=== PATIENT | male | born 1925 | race Caucasian/White ===

== ENCOUNTER → 2016-11-23 | Outpatient (CLI) | payer MEDICARE, OTHER ==
--- NOTE | 2016-11-23 18:05 | US ---
EXAMINATION TYPE: US kidneys/renal and bladder DATE OF EXAM: 11/23/2016 4:38 PM COMPARISON: 05/19/2015. CLINICAL HISTORY: 89-year-old male with urinary Retention R33.9. TECHNIQUE: Multiple sonographic images of the kidneys and bladder were obtained. FINDINGS: Right Kidney: 9.5 x 5.1 x 6.0cm without hydronephrosis. There is a 2.1 cm cyst at the lower pole. Left Kidney: 10.2 x 5.1 x 4.9cm without hydronephrosis. There is a 1.4 cm hypoechoic lesion within th e midpole, suspected cyst. There is a 5.7 cm solid lesion along the left inferior bladder as seen previously on 05/19/2015. Neith er ureteral jet is seen during the course of the exam. IMPRESSION: 1. No hydronephrosis. 2. A 2.1 cm cyst on the right and suspected 1.4 cm cyst at the left midpole as seen on 2014. Low-leve l echoes could be artifactual or could represent debris. 3. Redemonstrated 5.7 cm solid lesion left inferior bladder wall. Clinical correlation recommended as to etiology as this was also seen in 2015. Neoplasm not excluded.
== END | disposition home or self-care (01) ==
LOC: RADUSWWP 16:21
PROVIDERS: ATTEND Urology
DX: N28.1 Cyst of kidney, acquired (principal); N32.9 Bladder disorder, unspecified; R33.9 Retention of urine, unspecified
CPT/HCPCS: 76770

== ENCOUNTER → 2016-11-30 | Outpatient (CLI) | payer MEDICARE, OTHER ==
--- NOTE | 2016-11-30 10:19 | US ---
EXAMINATION TYPE: US venous doppler duplex LE DATE OF EXAM: 11/30/2016 9:42 AM COMPARISON: Bilateral lower extremity venous ultrasound February 10, 2015 CLINICAL HISTORY: LLext, Thrombolitis, I80.9. 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 No ult rasound evidence for acute DVT. Moderate-sized curvilinear fluid collection at the medial popliteal l evel in the left lower extremity is noted. Findings consistent with popliteal cyst. IMPRESSION: No ultrasound evidence for acute DVT in the left lower extremity.
== END | disposition home or self-care (01) ==
LOC: RADUSWWP 09:02
PROVIDERS: ATTEND Orthopaedic Surgery Orthopaedic Surgery of the Spine
DX: I82.402 Acute embolism and thrombosis of unspecified deep veins of left lower extremity (principal); I80.9 Phlebitis and thrombophlebitis of unspecified site

== ENCOUNTER 2016-12-02 01:23 | Inpatient (IN) | payer MEDICARE, OTHER ==
[2016-12-02 02:43] LABS: Basophils % (A) 0 %; CH 33.5; CHCM 34.5; Eosinophils % (A) 0 %; HCT 37.7 % (39.0-53.0); HDW 2.95; HGB 13.2 gm/dL (13.0-17.5); Luc # (Auto) 0.16; Luc % (Auto) 2; Lymphocytes # (A) 0.8 k/uL (1.0-4.8); Lymphocytes % (A) 9 %; MCH 34.1 pg (25.0-35.0); MCV 97.5 fL (80.0-100.0); Mean Platelet Volume 7.3; Monocytes # (A) 0.6 k/uL (0-1.0); Monocytes % (A) 6 %; Neutrophils # (A) 7.8 k/uL (1.3-7.7); Neutrophils % (A) 83 %; RBC 3.87 m/uL (4.30-5.90); RDW 14.6 % (11.5-15.5); WBC 9.4 k/uL (3.8-10.6); WBC (Perox) 10.19
[2016-12-02 02:52] LABS: ALT 29 U/L (21-72); AST 19 U/L (17-59); Alkaline Phosphatase 89 U/L (38-126); Anion Gap 9 mmol/L; Blood Urea Nitrogen 15 mg/dL (9-20); Calcium 8.3 mg/dL (8.4-10.2); Carbon Dioxide 26 mmol/L (22-30); Chloride 103 mmol/L (98-107); Glucose 111 mg/dL (74-99); Magnesium 1.9 mg/dL (1.6-2.3); Non-African American GFR(MDRD) >60 (>60 ml/min/1.73 sqM); Potassium 3.6 mmol/L (3.5-5.1); Sodium 138 mmol/L (137-145); Total Bilirubin 2.4 mg/dL (0.2-1.3)
--- NOTE | 2016-12-02 03:15 | CT ---
EXAM: CT Head Without Intravenous Contrast. CLINICAL HISTORY: Reason: trauma TECHNIQUE: Axial computed tomography images of the head/brain without intravenous contrast. CTDI is 58.00 mGy and DLP is 1058.00 mGy-cm COMPARISON: No relevant prior studies available. FINDINGS: Brain: Generalized atrophy. Posterior left temporal lobe encephalomalacia with mild ex vacuo dilatation of the left lateral ventricle temporal horn. No hemorrhage. No edema. Intracranial atherosclerosis is present. Ventricles: Seen above Bones: No acute fracture. Sinuses: Bilateral paranasal sinus disease involving the maxillary sinuses and right sphenoid sinus, all with mild wall thickening and could include small amounts of fluid, suggesting it may be of mixed chronicity. There has been previous paranasal sinus surgery. Mastoid air cells: Unremarkable as visualized. No mastoid effusion. Orbits: Near complete hyperdensity filling the left globe, that maintains its shape, without evidence of periorbital or intraorbital fat stranding suggesting hemorrhage that may be remote rather than acute. IMPRESSION: 1. No definite acute intracranial sequela from trauma. 2. Posterior left temporal lobe encephalomalacia. 3. Bilateral paranasal sinus disease. 4. High density material suggesting hemorrhage within the left globe, possibly chronic rather than acute. Correlate clinically. EXAM: CT Cervical Spine Without Intravenous Contrast. CLINICAL HISTORY: Reason: trauma TECHNIQUE: Axial computed tomography images of the cervical spine without intravenous contrast. CTDI is 37.00 mGy and DLP is 470.50 mGy-cm COMPARISON: No relevant prior studies available. FINDINGS: Vertebrae: Minor grade 1 anterolisthesis at C4 in relation to C3 and C5, presumably on a degenerative basis. No acute fracture allowing for multilevel degenerative changes, and osteopenia. Discs/spinal canal/neural foramina: The bones are osteopenic with multilevel degenerative changes present. Soft tissues: The prevertebral soft tissues are within normal limits. Bilateral carotid vascular calcification is seen. Lung apices: Unremarkable as visualized. IMPRESSION: 1. No definite acute osseous abnormality is seen. 2. Clinical clearance of the cervical spine is still recommended. 3. Multilevel spondylosis with minor anterolisthesis centered at the C4 level.
--- NOTE | 2016-12-02 03:18 | XR ---
EXAM: XR Left Forearm, 2 Views. CLINICAL HISTORY: Reason: Pain TECHNIQUE: Frontal and lateral views of the left forearm. COMPARISON: No relevant prior studies available. FINDINGS: Bones: The bones are diffusely osteopenic which limits sensitivity for detection of an acute fracture, allowing for which no acute fracture is identified. Joints: Degenerative changes are present including about the elbow, wrist and carpus. No dislocation. Soft tissues: No radiopaque foreign body seen. IMPRESSION: No acute fracture is seen at this time, as above. Short-term follow-up could be considered within 5-7 days if concern or symptoms persist.
[2016-12-02 03:20] LABS: Creatine Kinase MB 1.1 ng/mL (0.0-2.4)
--- NOTE | 2016-12-02 03:21 | XR ---
EXAM: XR Chest, 1 View. CLINICAL HISTORY: Reason: fall TECHNIQUE: Frontal view of the chest. COMPARISON: No relevant prior studies available. FINDINGS: Lungs: Unremarkable. No consolidation. Pleural spaces: Unremarkable. No pneumothorax. Heart: Mild cardiomegaly. Mediastinum: Mild aortic ectasia and calcification. Bones: Osteopenia and degenerative changes without acute displaced fracture seen. Tubes and lines: There is artifact present overlying the shoulders and neck, perhaps from external clothing or support structures. EKG leads overlie the chest. IMPRESSION: No definite acute intrathoracic sequela from trauma seen, as above.
[2016-12-02 03:43] LABS: Troponin I 0.212 ng/mL (0.000-0.034)
[2016-12-02 03:51] LABS: Appearance,Urine Clear (Clear); Bacteria,Urine Rare /hpf; Bilirubin,Urine Negative (Negative); Glucose,Urine (UA) Negative (Negative); Ketones,Urine Negative (Negative); Leukocyte Esterase,Urine Large (Negative); Mucus,Urine Rare /hpf; Nitrite,Urine Negative (Negative); Particle Count 4752; Protein,Urine 1+ (Negative); RBC,Urine 83 /hpf (0-5); Specific Gravity,Urine 1.018 (1.001-1.035); UA Billing (MACRO vs. MICRO) MICRO; WBC,Urine 115 /hpf (0-5)
[2016-12-02] MEDS ORDERED: LEVOFLOXACIN 750MG-D5W PMX 750 MG in DEXTROSE/WATER 1 150ML.BAG IVPB STA (04:41)
--- NOTE | 2016-12-02 05:54 | ED ---
Fall HPI - General Chief Complaint: Fall Stated Complaint: fall Time Seen by Provider: 12/02/16 01:29 Source: patient Mode of arrival: EMS - History of Present Illness Initial Comments: This patient is an 89-year-old man brought in to be evaluated after he had a fall at home. The patient had fallen earlier in the day and then was too weak to get up. The patient states that he was eventually able to dial his son-in- law's phone number who came and found him lying on the floor, and then phone EMS to bring him here. The patient was having some pains to the back of the head near the occiput, also to his left forearm where there is a skin tear. The patient is denying chest pain or dyspnea. He is denying neurologic symptoms of weakness or numbness, no change in vision, speech or swallowing. The patient is having some weakness but is the bilateral lower extremities. Patient and son note that he has been getting progressively more weak over the past few days, and today he was not able to stand after the fall. 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: no Place Fall Occurred: home Loss of Consciousness: none Prolonged Down Time?: yes Symptoms Prior to Fall: none Location: head, chest Severity: moderate Context: tripped/slipped Associated Symptoms: unable to walk - Related Data Home Medications Medication Instructions Recorded Confirmed Allopurinol [Zyloprim] 300 mg PO DAILY 10/06/14 09/14/16 Budesonide-Formot 160-4.5 Mcg 2 puff INHALATION RT-BID 10/06/14 09/14/16 [Symbicort 160-4.5 Mcg Inhaler] Cholecalciferol [Vitamin D3] 2,000 unit PO DAILY@1200 10/06/14 09/14/16 Finasteride [Proscar] 5 mg PO DAILY 10/06/14 09/14/16 Potassium Chloride [Klor-Con 20] 20 meq PO AC-BID 10/06/14 09/14/16 Retinavites 1 tab PO BID 10/06/14 09/14/16 Silodosin [Rapaflo] 8 mg PO HS 10/06/14 09/14/16 Travoprost [Travatan Z 0.004%] 1 drop RIGHT EYE DAILY 10/06/14 09/14/16 prednisoLONE ACETATE 1% OPHTH 1 drops LEFT EYE DAILY 10/06/14 09/14/16 [Pred Forte 1%] Atropine Sulfate [Atropine Sulfate 1 spray LEFT EYE BID 09/14/16 09/14/16 1%] Dorzolamide 2% [Trusopt 2%] 1 drops RIGHT EYE BID 09/14/16 09/14/16 Furosemide [Lasix] 40 mg PO DAILY 09/14/16 09/14/16 Moxifloxacin HCl [Avelox] 400 mg PO DAILY 09/14/16 09/14/16 Previous Rx's Medication Instructions Recorded Ofloxacin 0.3% Ophth Soln [Ocuflox 1 drops RIGHT EYE Q2HR #1 bottle 09/05/16 Ophth Soln] Allergies Allergy/AdvReac Type Severity Reaction Status Date / Time No Known Allergies Allergy Verified 12/02/16 01:37 Review of Systems ROS Statement: Those systems with pertinent positive or pertinent negative responses have been documented in the HPI. ROS Other: All systems not noted in ROS Statement are negative. Constitutional: Reports: fever, weakness Eyes: Denies: eye pain, vision change ENT: Denies: hearing loss Respiratory: Denies: cough, dyspnea Cardiovascular: Reports: dyspnea on exertion. Denies: chest pain, palpitations , orthopnea, syncope Gastrointestinal: Denies: abdominal pain, vomiting, diarrhea Genitourinary: Reports: other (Indwelling catheter due to prostate). Denies: dysuria Musculoskeletal: Denies: back pain Skin: Denies: rash Neurological: Reports: weakness (Generalized). Denies: headache, numbness, paresthesias Past Medical History Past Medical History: COPD, Hypertension Additional Past Medical History / Comment(s): gout History of Any Multi-Drug Resistant Organisms: MRSA Date of last positivie culture/infection: 10/16/2009 MDRO Source:: unknown Past Surgical History: No Surgical Hx Reported Additional Past Surgical History / Comment(s): ruptured testicle at age of 11, cataract surgery Past Anesthesia/Blood Transfusion Reactions: No Reported Reaction Past Psychological History: No Psychological Hx Reported Smoking Status: Former smoker Past Alcohol Use History: Daily Past Drug Use History: None Reported - Past Family History Father Family Medical History: Myocardial Infarction ([place]) Additional Family Medical History / Comment(s): pt. states his father in his 50's from a heart attack General Exam General appearance: alert, in no apparent distress, obese Head exam: Present: normocephalic, other (There is contusions the right posterior scalp) Eye exam: Present: normal appearance. Absent: scleral icterus, conjunctival injection ENT exam: Present: mucous membranes dry Neck exam: Present: normal inspection. Absent: tenderness, meningismus, lymphadenopathy Respiratory exam: Present: normal lung sounds bilaterally. Absent: respiratory distress, wheezes, rales, rhonchi, stridor, chest wall tenderness, decreased breath sounds Cardiovascular Exam: Present: normal rhythm, irregular rhythm, systolic murmur ( Grade 2/6). Absent: diastolic murmur, rubs, gallop GI/Abdominal exam: Present: soft. Absent: distended, tenderness, guarding, rebound, mass Extremities exam: Present: normal capillary refill. Absent: pedal edema, calf tenderness Back exam: Absent: CVA tenderness (R), CVA tenderness (L), vertebral tenderness Neurological exam: Present: alert, oriented X3, CN II-XII intact. Absent: motor sensory deficit Skin exam: Present: warm, dry, intact, normal color. Absent: rash Course Vital Signs 12/02/16 12/02/16 01:32 05:52 Temperature 100.5 F H 97.9 F Pulse Rate 70 96 Respiratory 18 18 Rate Blood Pressure 157/80 113/78 O2 Sat by Pulse 96 95 Oximetry Medical Decision Making - Medical Decision Making Patient is an 89-year-old man who had a fall tonight with weakness and inability to get up and walk after. He also has fever and some tachycardia. The workup reveals that there is urinary tract infection, however the patient does have indwelling catheter and this may be colonized. A culture will be pending. The patient's EKG may show atrial fibrillation, and he is given a dose of Lovenox here in the emergency department. As his troponin is minimally elevated , patient will have cardiology consultation and also monitoring and serial enzymes. Patient may require longer term anticoagulation but this will require further discussions as patient does appear to be fall risk. - Lab Data Result diagrams: 12/02/16 02:20 12/02/16 02:20 Lab Results 12/02/16 12/02/16 12/02/16 Range/Units 02:20 02:20 02:20 WBC 9.4 (3.8-10.6) k/uL RBC 3.87 L (4.30-5.90) m/uL Hgb 13.2 (13.0-17.5) gm/dL Hct 37.7 L (39.0-53.0) % MCV 97.5 (80.0-100.0) fL MCH 34.1 (25.0-35.0) pg MCHC 35.0 (31.0-37.0) g/dL RDW 14.6 (11.5-15.5) % Plt Count 184 (150-450) k/uL Neutrophils % 83 % Lymphocytes % 9 % Monocytes % 6 % Eosinophils % 0 % Basophils % 0 % Neutrophils # 7.8 H (1.3-7.7) k/uL Lymphocytes # 0.8 L (1.0-4.8) k/uL Monocytes # 0.6 (0-1.0) k/uL Eosinophils # 0.0 (0-0.7) k/uL Basophils # 0.0 (0-0.2) k/uL Sodium 138 (137-145) mmol/L Potassium 3.6 (3.5-5.1) mmol/L Chloride 103 (98-107) mmol/L Carbon Dioxide 26 (22-30) mmol/L Anion Gap 9 mmol/L BUN 15 (9-20) mg/dL Creatinine 0.80 (0.66-1.25) mg/dL Est GFR (MDRD) Af Amer >60 (>60 ml/min/1.73 sqM) Est GFR (MDRD) Non-Af >60 (>60 ml/min/1.73 sqM) Glucose 111 H (74-99) mg/dL Plasma Lactic Acid Cesar (0.7-2.0) mmol/L Calcium 8.3 L (8.4-10.2) mg/dL Magnesium 1.9 (1.6-2.3) mg/dL Total Bilirubin 2.4 H (0.2-1.3) mg/dL AST 19 (17-59) U/L ALT 29 (21-72) U/L Alkaline Phosphatase 89 (38-126) U/L Total Creatine Kinase 36 L (55-170) U/L CK-MB (CK-2) 1.1 (0.0-2.4) ng/mL CK-MB (CK-2) Rel Index 3.1 Troponin I 0.212 H* (0.000-0.034) ng/mL Total Protein 6.0 L (6.3-8.2) g/dL Albumin 3.0 L (3.5-5.0) g/dL Urine Color Urine Appearance (Clear) Urine pH (5.0-8.0) Ur Specific [place] (1.001-1.035) Urine Protein (Negative) Urine Glucose (UA) (Negative) Urine Ketones (Negative) Urine Blood (Negative) Urine Nitrate (Negative) Urine Bilirubin (Negative) Urine Urobilinogen (<2.0) mg/dL Ur Leukocyte Esterase (Negative) Urine RBC (0-5) /hpf Urine WBC (0-5) /hpf Urine Bacteria (None) /hpf Hyaline Casts (0-2) /lpf Urine Mucus (None) /hpf Influenza Type A RNA (Not Detectd) Influenza Type B (PCR) (Not Detectd) 12/02/16 12/02/16 12/02/16 Range/Units 02:20 02:20 03:00 WBC (3.8-10.6) k/uL RBC (4.30-5.90) m/uL Hgb (13.0-17.5) gm/dL Hct (39.0-53.0) % MCV (80.0-100.0) fL MCH (25.0-35.0) pg MCHC (31.0-37.0) g/dL RDW (11.5-15.5) % Plt Count (150-450) k/uL Neutrophils % % Lymphocytes % % Monocytes % % Eosinophils % % Basophils % % Neutrophils # (1.3-7.7) k/uL Lymphocytes # (1.0-4.8) k/uL Monocytes # (0-1.0) k/uL Eosinophils # (0-0.7) k/uL Basophils # (0-0.2) k/uL Sodium (137-145) mmol/L Potassium (3.5-5.1) mmol/L Chloride (98-107) mmol/L Carbon Dioxide (22-30) mmol/L Anion Gap mmol/L BUN (9-20) mg/dL Creatinine (0.66-1.25) mg/dL Est GFR (MDRD) Af Amer (>60 ml/min/1.73 sqM) Est GFR (MDRD) Non-Af (>60 ml/min/1.73 sqM) Glucose (74-99) mg/dL Plasma Lactic Acid Cesar 1.1 (0.7-2.0) mmol/L Calcium (8.4-10.2) mg/dL Magnesium (1.6-2.3) mg/dL Total Bilirubin (0.2-1.3) mg/dL AST (17-59) U/L ALT (21-72) U/L Alkaline Phosphatase (38-126) U/L Total Creatine Kinase (55-170) U/L CK-MB (CK-2) (0.0-2.4) ng/mL CK-MB (CK-2) Rel Index Troponin I (0.000-0.034) ng/mL Total Protein (6.3-8.2) g/dL Albumin (3.5-5.0) g/dL Urine Color Yellow Urine Appearance Clear (Clear) Urine pH 6.0 (5.0-8.0) Ur Specific [place] 1.018 (1.001-1.035) Urine Protein 1+ H (Negative) Urine Glucose (UA) Negative (Negative) Urine Ketones Negative (Negative) Urine Blood Moderate H (Negative) Urine Nitrate Negative (Negative) Urine Bilirubin Negative (Negative) Urine Urobilinogen 2.0 (<2.0) mg/dL Ur Leukocyte Esterase Large H (Negative) Urine RBC 83 H (0-5) /hpf Urine WBC 115 H (0-5) /hpf Urine Bacteria Rare H (None) /hpf Hyaline Casts 5 H (0-2) /lpf Urine Mucus Rare H (None) /hpf Influenza Type A RNA Not Detected (Not Detectd) Influenza Type B (PCR) Not Detected (Not Detectd) - EKG Data -: EKG Interpreted by Co EKG shows normal: axis ([place] deviation), intervals (Normal) When compared to previous EKG there are: other (The QRS morphology is similar to the previous EKG however the rhythm may now be atrial fibrillation.) Interpretation: LVH (With repolarization abnormality), other (The EKG shows an undetermined rhythm, but I suspect that his atrial fibrillation, the rate is approximately 114 bpm. There are occasional PVCs.) Critical Care Time Critical Care Time: Yes (40 minutes) Disposition Clinical Impression: Fall, Generalized weakness, Urinary tract infection, Elevated troponin I level Narrative: Possible atrial fibrillation. Disposition: ADMITTED IP TO THIS HOSP Condition: Poor
[2016-12-02] MEDS ORDERED: NITROGLYCERIN SL TABS 0.4 MG TAB SUBLINGUAL PRN (05:55)
[2016-12-02] MEDS ORDERED: ENOXAPARIN 100 MG/ML SYRINGE SQ STA (06:12)
[2016-12-02] MEDS ORDERED: POTASSIUM CHLORIDE ER 20 MEQ TAB.ER PO SCH (07:30)
[2016-12-02] MEDS ORDERED: SYMBICORT 160-4.5 MCG INHALER INHALATION SCH (08:00)
[2016-12-02 09:00] LABS: Creatine Kinase MB 1.7 ng/mL (0.0-2.4)
[2016-12-02] MEDS ORDERED: FUROSEMIDE 40 MG TAB PO SCH (09:00)
[2016-12-02 09:06] LABS: Troponin I 0.323 ng/mL (0.000-0.034)
[2016-12-02] MEDS: FINASTERIDE 5 MG TAB PO SCH (12:58)
[2016-12-02] MEDS: ALLOPURINOL 300 MG TAB PO SCH (12:58)
[2016-12-02] MEDS: LATANOPROST 0.005% OPHTH DROPS 2.5 ML BTL RIGHT EYE SCH (12:58)
[2016-12-02] MEDS: DORZOLAMIDE HCL 2% DROPS 10 ML BTL RIGHT EYE SCH ×2 (12:58→22:30)
[2016-12-02] MEDS: CHOLECALCIFEROL 1,000 UNIT TAB PO SCH (12:59)
[2016-12-02] MEDS: prednisoLONE ACETATE 1% OPHTH DROPS 1 ML BTL LEFT EYE SCH (12:59)
[2016-12-02] MEDS: VIT A,C & E-LUTEIN-MINERALS 1 EACH TAB PO SCH ×2 (12:59→22:30)
--- NOTE | 2016-12-02 15:00 | P.CRDCN ---
History of Present Illness Consult date: 12/02/16 Requesting physician: Jules Rock Reason for Consult (text): Abnormal troponins Chief complaint: Fall History of present illness: This is a pleasant 89-year-old gentleman who follows with Dr. Archer in the office. He has a known history of hypertension, but because of fairly recent hypotension his antihypertensive medications have been discontinued. 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 He presented to the hospital after experiencing a fall at home. According to the patient he became unsteady and fell to the ground. He did not have a syncopal episode according to the son-in-law and the patient. A cardiology consultation was requested because of abnormal troponins. X-ray of the forearm performed on admission did not reveal any acute fracture. Head and cervical spine CT did not reveal any acute abnormality. The pressure on arrival 157/80, temperature 100.5, 96% on room air. EKG on arrival shows a sinus tachycardia with PVCs and PACs. Laboratory data, hemoglobin 13.2, white blood cell count 9.4, sodium 138, potassium 3.6, BUN 15, creatinine 0.8. Positive UTI, troponins 0.2, 0.3. At the time of my examination, patient denies having any chest discomfort, breathing overall has been stable. He does have a productive cough which according to the son-in-law he has quite regularly. Past Medical History Past Medical History: Asthma, Cancer, COPD, Eye Disorder, Hypertension, Pneumonia, Prostate Disorder Additional Past Medical History / Comment(s): Macular degeneration/ glaucoma R eye, tracheobronchitis, BPH, indwelling catheter, skin cancer with removal, sinus problems, gout History of Any Multi-Drug Resistant Organisms: MRSA Date of last positivie culture/infection: 10/16/2009 MDRO Source:: Left forearm Past Surgical History: No Surgical Hx Reported, Hernia Repair, Prostate Surgery Additional Past Surgical History / Comment(s): ruptured testicle at age of 11, bilateral cataract removal, nasal polyps removed, TURP, inguinal hernia repair, L forearm bx. Past Anesthesia/Blood Transfusion Reactions: No Reported Reaction Past Psychological History: Depression Additional Psychological History / Comment(s): Pt states he sometimes has "alittle depression." Denies any thoughts of suicide, states when the time comes, he is ready to . Pt ambulates occasionally with the assist of a cane or walker. He has 4 steps to get into the home and then he stays on the 1st floor. He sleeps in his recliner. His matt and son-in-law live 1 mile away and are active in his care. They take him to his appts. They make sure he has meals. He has VNA. Smoking Status: Former smoker Past Alcohol Use History: Daily Additional Past Alcohol Use History / Comment(s): Pt states he started smoking in 1943 and quit in 1974. He states he used to drink heavily but now drinks 2- 3 beers a day. Past Drug Use History: None Reported - Past Family History Father Family Medical History: Myocardial Infarction ([place]) Additional Family Medical History / Comment(s): pt. states his father in his 50's from a heart attack Medications and Allergies Home Medications Medication Instructions Recorded Confirmed Type Allopurinol [Zyloprim] 300 mg PO DAILY 10/06/14 12/02/16 History Finasteride [Proscar] 5 mg PO DAILY 10/06/14 12/02/16 History Potassium Chloride [Klor-Con 20] 20 meq PO AC-BID 10/06/14 12/02/16 History Silodosin [Rapaflo] 8 mg PO HS 10/06/14 12/02/16 History Travoprost [Travatan Z 0.004%] 1 drop RIGHT EYE HS 10/06/14 12/02/16 History Dorzolamide 2% [Trusopt 2%] 1 drops RIGHT EYE HS 09/14/16 12/02/16 History Furosemide [Lasix] 40 mg PO DAILY 09/14/16 12/02/16 History Budesonide/Formoterol Fumarate 1 puff IH BID 12/02/16 12/02/16 History [Symbicort 160-4.5 Mcg Inhaler] Difluprednate [Durezol] 1 drop OP DAILY 12/02/16 12/02/16 History Fluticasone Propionate [Flovent 50 mcg INHALATION DAILY 12/02/16 12/02/16 History Diskus] Sennosides-Docusate Sodium 1 tab PO DAILY 12/02/16 12/02/16 History [Senokot-S] Allergies Allergy/AdvReac Type Severity Reaction Status Date / Time No Known Allergies Allergy Verified 12/02/16 01:37 Physical Exam Vitals: Vital Signs Temp Pulse Resp BP Pulse Ox 12/02/16 12:50 80 16 130/83 97 12/02/16 08:00 60 18 12/02/16 07:30 99.2 F 60 18 132/84 97 Intake and Output 12/01/16 12/02/16 12/02/16 22:59 06:59 14:59 Intake Total 240 Output Total 800 Balance -560 Intake: Oral 240 Output: Urine 800 Other: Voiding Method Indwelling Catheter # Bowel Movements 0 PHYSICAL EXAMINATION: HEENT: Head is atraumatic, normocephalic. Pupils equal, round. Neck is supple. There is no elevated jugular venous pressure. HEART EXAMINATION: Heart S1 and S2 systolic murmur is heard. CHEST EXAMINATION: His reveal scattered coarse rhonchi that clear with cough. ABDOMEN: Soft, nontender. Bowel sounds are heard. No organomegaly noted. EXTREMITIES: 1+ peripheral pulses with no evidence of peripheral edema and no calf tenderness noted. Patient does have significant skin discoloration on arms and legs, positive Velazquez cyst. NEUROLOGIC patient is awake, alert and oriented -3. . Results 12/02/16 02:20 12/02/16 02:20 Cardiac Enzymes 12/02/16 Range/Units 08:15 CK-MB (CK-2) 1.7 (0.0-2.4) ng/mL Troponin I 0.323 H* (0.000-0.034) ng/mL Current Medications Generic Name Dose Route Start Last Admin Trade Name Freq PRN Reason Stop Dose Admin Allopurinol 300 mg 12/02/16 09:00 12/02/16 12:58 Zyloprim PO 300 mg DAILY [facility]EN[facility]IA Administration Aspirin 325 mg 12/03/16 09:00 Aspirin PO DAILY [facility] Budesonide/Formoterol Fumarate 2 puff 12/02/16 08:00 12/02/16 11:43 Symbicort 160-4.5 Mcg Inhaler INHALATION 2 puff RT-BID VENECIA Administration Cholecalciferol 2,000 unit 12/02/16 12:00 12/02/16 12:59 Vitamin D3 PO 2,000 unit DAILY@1200 [facility] Administration Dorzolamide HCl 1 drops 12/02/16 09:00 12/02/16 12:58 Trusopt RIGHT EYE 1 drops BID [facility]IA Administration Finasteride 5 mg 12/02/16 09:00 12/02/16 12:58 Proscar PO 5 mg DAILY [facility]IA Administration Furosemide 40 mg 12/02/16 09:00 12/02/16 12:58 Lasix PO 40 mg DAILY [facility] Administration Heparin Sodium (Porcine) 5,000 unit 12/02/16 21:00 Heparin SQ Q12HR VENECIA Latanoprost 1 drops 12/02/16 09:00 12/02/16 12:58 Xalatan 0.005% RIGHT EYE 1 drops DAILY [facility] Administration Multivitamins/Minerals 1 each 12/02/16 09:00 12/02/16 12:59 Ivite PO 1 each BID [facility]ENECIA Administration Nitroglycerin 0.4 mg 12/02/16 05:55 Nitrostat SUBLINGUAL Q5M PRN Chest Pain Potassium Chloride 20 meq 12/02/16 07:30 12/02/16 12:57 K-Dur 20 PO 20 meq AC-BID VENECIA Administration Prednisolone Acetate 1 drops 12/02/16 09:00 12/02/16 12:59 Pred Forte 1% LEFT EYE 1 drops DAILY [facility] Administration Tamsulosin HCl 0.8 mg 12/02/16 21:00 Flomax PO HS [facility]ENECIA Intake and Output 12/01/16 12/02/16 12/02/16 22:59 06:59 14:59 Intake Total 240 Output Total 800 Balance -560 Intake: Oral 240 Output: Urine 800 Other: Voiding Method Indwelling Catheter # Bowel Movements 0 EKG Interpretations (text) EKG shows normal sinus rhythm with PACs and PVCs Assessment and Plan Plan: Assessment and plan #1 fall secondary to unsteadiness. No clear-cut syncope. #2 abnormal troponins, not suggestive of acute coronary syndrome, likely secondary to oxygen supply and demand mismatch #3 hypertension, patient had been on medications for high blood pressure previously, these have been recently discontinued because of significant hypotension. #4 COPD #5 chronic bronchitis #6 prior history of smoking Plan We will obtain an echocardiogram with Doppler study. Decrease aspirin 81 mg daily. Abnormal troponins not suggestive of acute coronary syndrome. DNP note has been reviewed, I agree with a documented findings and plan of care. Patient was seen and examined.
[2016-12-02 15:31] LABS: Creatine Kinase MB 1.4 ng/mL (0.0-2.4)
[2016-12-02 15:33] LABS: Troponin I 0.241 ng/mL (0.000-0.034)
--- NOTE | 2016-12-02 19:05 | HP ---
Patient is an 89-year-old gentleman, came in because of the pain in bilateral lower limbs and fall. Patient has been weak and patient is found to have fever. Patient is admitted. Patient's chest x-ray is essentially within normal limits. Patient has a chronic Mina catheter which was placed because of his prostate issues and his urine definitely looks bad with large leukocyte esterase and elevated WBC and elevated RBCs and hyaline casts. Patient does have a history of COPD, but the patient denied any cough at this point of time. Patient has a Velazquez cyst, because of which patient has pain in the legs and has been falling and patient is supposed to get an MRI for the Velazquez cyst. Dr. Clinton Torres is evaluating that as an outpatient. I will get his consult as well. Patient will be started on Rocephin and we will await urine cultures and will check with Urology regarding whether to replace the Mina catheter which was not replaced because it was a difficult placement of Mina catheter or just leave it alone with IV antibiotics. Patient had a fall, because of which patient had a cervical spine CT which did not reveal any abnormality or other issues. Patient has minimally elevated troponins, which are fairly stable and elevated to 0.212, 0.323 and 0.241, for which Cardiology evaluated the patient, did not believe that this is secondary to myocardial ischemia. REVIEW OF SYSTEMS: CONSTITUTIONAL: As described in HPI. HEENT: No recent visual problems or hearing problems. Denied any sore throat. CARDIOVASCULAR: No chest pain, orthopnea, PND, no palpitations, no syncope. PULMONARY: No shortness of breath, no cough, no hemoptysis. GASTROINTESTINAL: No diarrhea, no nausea, no vomiting, no abdominal pain. Normoactive bowel sounds. GENITOURINARY: As described in HPI. NEUROLOGICAL: No headaches, no weakness, no numbness. HEMATOLOGICAL: Denies any bleeding or petechiae. GENITOURINARY: Denies any burning micturition, frequency, or urgency. MUSCULOSKELETAL/RHEUMATOLOGICAL: Denies any joint pain, swelling, or any muscle pain. ENDOCRINE: Denies any polyuria or polydipsia. The rest of the 14 point review of systems is negative. Patient has nonspecific abdominal pain, which completely resolved at this point of time. Patient denied any chest pain. PAST MEDICAL HISTORY: Significant for COPD, skin cancer in the past, hypertension, prostate enlargement for which patient is following up with Urology, chronic Mina catheter, moderate dementia, macular degeneration, MRSA in the past. SOCIAL HISTORY: Former smoker, quit smoking in 1974. Used to drink heavily in the past. Denied any drug abuse. FAMILY HISTORY: Father had myocardial infarction, at age 50. Home medications include: 1. Allopurinol. 2. Finasteride. 3. Potassium chloride. 4. Rapaflo. 5. Travoprost. 6. Dorzolamide. 7. Lasix. 8. Budesonide. 9. Formoterol. 10. Fluticasone. 11. Senna. ALLERGIES: No known drug allergies. PHYSICAL EXAMINATION: VITAL SIGNS: Temperature 97.1, pulse of 94, respiratory rate of 18, blood pressure is 114/57, saturating at 98% on room air. GENERAL: Patient is elderly gentleman with frail skin and multiple skin breakdowns, including one on the left forearm. HEENT: Pupils are round and equally reacting to light. EOMI. No scleral icterus. No conjunctival pallor. Normocephalic, atraumatic. No pharyngeal erythema. No thyromegaly. CARDIOVASCULAR: S1 and S2 present. No murmurs, rubs, or gallops. PULMONARY: Chest is clear to auscultation, no wheezing or crackles. ABDOMEN: Soft, nontender, nondistended, normoactive bowel sounds. No palpable organomegaly. MUSCULOSKELETAL: No joint swelling or deformity. EXTREMITIES: No cyanosis, clubbing, or pedal edema. NEUROLOGICAL: Patient has no focal neurological deficits, but does have chronic weakness in bilateral lower extremities. Patient does have generalized weakness. Additionally patient stays by himself at home, which he cannot do anymore. Patient apparently was doing well. Patient has a left leg Velazquez cyst in the popliteal area in the posterior aspect of the knee. SKIN: No rashes. LABORATORY DATA: CBC, CMP essentially within normal limits. Troponins as mentioned above. UA as mentioned above. ASSESSMENT AND PLAN: 1. Sepsis secondary to urinary tract infection, probably Mina catheter-related. Patient has a chronic Mina catheter and a difficult insertion. Management as mentioned above. Patient was started on Rocephin. Will watch for urine cultures. Blood cultures were obtained. 2. Prostate enlargement. Patient is on 2 medications for that, which will be continued. 3. Minimally elevated troponin secondary to oxygen supplement mismatch and secondary to sepsis. No further intervention from Cardiology perspective. 4. Hypertension. 5. Chronic obstructive pulmonary disease. 6. Generalized deconditioning. 7. Dementia. Patient will need placement at subacute rehabilitation. 8. Chronic obstructive pulmonary disease without any acute exacerbation. 9. Plan as mentioned in the history as well as the assessment.
[2016-12-02] MEDS: SYMBICORT 160-4.5 MCG INHALER INHALATION SCH (21:31)
[2016-12-02] MEDS: TAMSULOSIN 0.4 MG CAP.ER.24H PO SCH (22:30)
[2016-12-02] MEDS: HEPARIN SODIUM,PORCINE 5,000 UNIT/ML 1 ML VIAL SQ SCH (22:30)
[2016-12-03 06:32] LABS: Glucose,Whole Blood 87 mg/dL (75-99)
[2016-12-03 07:05] LABS: CHCM 33.1; HCT 36.4 % (39.0-53.0); HDW 2.79; HGB 11.8 gm/dL (13.0-17.5); MCH 32.4 pg (25.0-35.0); MCHC 32.3 g/dL (31.0-37.0); MCV 100.3 fL (80.0-100.0); Macrocytosis Slight; Mean Platelet Volume 6.6; RBC 3.63 m/uL (4.30-5.90); RDW 14.2 % (11.5-15.5); WBC 7.3 k/uL (3.8-10.6)
[2016-12-03] MEDS: SYMBICORT 160-4.5 MCG INHALER INHALATION SCH ×2 (07:14→19:49)
[2016-12-03 07:21] LABS: Anion Gap 10 mmol/L; Blood Urea Nitrogen 17 mg/dL (9-20); Calcium 8.8 mg/dL (8.4-10.2); Carbon Dioxide 22 mmol/L (22-30); Chloride 100 mmol/L (98-107); Cholesterol 111 mg/dL (<200); Glucose 89 mg/dL (74-99); HDL Cholesterol 60 mg/dL (40-60); Non-African American GFR(MDRD) >60 (>60 ml/min/1.73 sqM); Potassium 3.9 mmol/L (3.5-5.1); Sodium 132 mmol/L (137-145); Triglycerides 49 mg/dL (<150)
[2016-12-03] MEDS ORDERED: LORazepam 2 MG/ML SYRINGE IV PRN ×2 (07:51→09:13)
[2016-12-03] MEDS: LATANOPROST 0.005% OPHTH DROPS 2.5 ML BTL RIGHT EYE SCH (08:43)
[2016-12-03] MEDS: DORZOLAMIDE HCL 2% DROPS 10 ML BTL RIGHT EYE SCH ×2 (08:43→19:55)
[2016-12-03] MEDS: HEPARIN SODIUM,PORCINE 5,000 UNIT/ML 1 ML VIAL SQ SCH ×2 (08:44→19:56)
[2016-12-03] MEDS: ALLOPURINOL 300 MG TAB PO SCH (08:44)
[2016-12-03] MEDS: ASPIRIN 325 MG TAB PO SCH (08:44)
[2016-12-03] MEDS: VIT A,C & E-LUTEIN-MINERALS 1 EACH TAB PO SCH ×2 (08:44→19:56)
[2016-12-03] MEDS: FINASTERIDE 5 MG TAB PO SCH (08:44)
[2016-12-03] MEDS: prednisoLONE ACETATE 1% OPHTH DROPS 1 ML BTL LEFT EYE SCH (08:44)
--- NOTE | 2016-12-03 09:39 | ECHOF ---
Referral Reason:[facility] MEASUREMENTS -------- HEIGHT: 152.4 cm WEIGHT: 99.8 kg BP: RVIDd: 3.8 cm (< 3.3) IVSd: 1.1 cm (0.6 - 1.1) LVIDd: 5.1 cm (3.9 - 5.3) LVPWd: 1.2 cm (0.6 - 1.1) IVSs: 1.5 cm LVIDs: 3.7 cm LVPWs: 1.9 cm LA Diam: 3.4 cm (2.7 - 3.8) Ao Diam: 3.5 cm (2.0 - 3.7) AV Cusp: 1.8 cm (1.5 - 2.6) LA Diam: 4.5 cm (2.7 - 3.8) MV EXCURSION: 26.377 mm (> 18.000) MV EF SLOPE: 70 mm/s (70 - 150) EPSS: 0.7 cm MV E Roddy: 0.45 m/s MV DecT: 273 ms MV A Roddy: 0.86 m/s MV E/A Ratio: 0.52 RAP: 5.00 mmHg RVSP: 28.54 mmHg FINDINGS -------- Undetermined rhythm. This was a technically adequate study. There is mild concentric left ventricular hypertrophy. Overall left ventricular systolic function is moderate-severely impaired with, an EF between 30 - 35 %. The right ventricle is normal in size. The left atrial size is normal. The right atrial size is normal. There is mild aortic valve sclerosis. There is no evidence of aortic regurgitation. Mild mitral annular calcification present. Mild mitral regurgitation is present. Mild tricuspid regurgitation present. There is no evidence of pulmonary hypertension. The right ventricular systolic pressure, as measured by Doppler, is 28.54mmHg. There is no pulmonic regurgitation present. The aortic root size is normal. There is no pericardial effusion. CONCLUSIONS -------- 1. There is mild concentric left ventricular hypertrophy. 2. The aortic root size is normal. 3. There is no pericardial effusion. 4. Overall left ventricular systolic function is moderate-severely impaired with, an EF between 30 - 35 %. 5. There is mild aortic valve sclerosis. 6. Mild mitral annular calcification present. 7. Mild mitral regurgitation is present. 8. Mild tricuspid regurgitation present. 9. There is no evidence of pulmonary hypertension. 10. The right ventricular systolic pressure, as measured by Doppler, is 28.54mmHg. 11. There is no pulmonic regurgitation present. BLEACH MAKER: Mable Ryan RDCS
--- NOTE | 2016-12-03 12:18 | CT ---
EXAMINATION TYPE: CT brain wo con DATE OF EXAM: 12/03/2016 12:15 PM COMPARISON: 12/02/2016 and 01/12/2014 HISTORY: 89-year-old male with unequal pupils, left is larger. TECHNIQUE: Examination was done in axial plane without intravenous contrast. Coronal and sagittal r econstructions performed. CT DLP: 670 mGycm Automated exposure control for dose reduction was used. FINDINGS: There are extensive artifacts due to the patient's inability to appropriately position in the gantry which limits the overall evaluation. There is no evidence for hyperdense hemorrhage or sizable extra-axial fluid collection. No midline sh ift or hydrocephalus. Hypodensity at the left temporoparietal junction appears to have been present on 01/12/2014 suggesting an area of previous infarct. Moderate cerebral cortical atrophy is unchanged. Moderate mucosal thickening right sphenoid sinus. Again, the left globe is noted to be dense probably on a postsurgical basis. IMPRESSION: 1. Extensive artifacts due to the patient's inability to appropriately position in the gantry. This l imits assessment for acute ischemic changes. 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 2. No hyperdense intracranial hemorrhage seen. If indicated, MRI can BE considered. 3. Postsurgical left globe.
[2016-12-03] MEDS ORDERED: ACETAMINOPHEN TAB 325 MG TAB PO PRN (14:55)
[2016-12-03] MEDS: CHOLECALCIFEROL 1,000 UNIT TAB PO SCH (15:06)
--- NOTE | 2016-12-03 15:06 | P.PN ---
Subjective This is a pleasant 89-year-old gentleman who follows with Dr. Archer in the office. He has a known history of hypertension but because of fairly recent hypotension his antihypertensive agents have been discontinued. Patient also has history of COPD, chronic bronchitis, prior nicotine dependence , asthma, prostate enlargement as well as a Velazquez cyst. He presented to the hospital after experiencing a fall at home. According to the patient he became unsteady and fell to the ground. He did not have a syncopal episode according to the son-in-law and the patient. Cardiology was consulted cousin of abnormal troponins. He's also been shown to be positive for UTI. Troponin levels were elevated at 0.3-3 and 0.241. Upon examination today, patient is resting comfortably in bed denies any complaints of chest discomfort and feels his breathing is stable. He does have a productive cough which appears to be chronic. Patient underwent echocardiogram yesterday that showed an ejection fraction of 30-35%. Objective - Vital Signs Vital signs: Vital Signs Temp 99.1 F 12/03/16 08:28 Pulse 98 12/03/16 14:45 Resp 16 12/03/16 09:55 BP 100/56 12/03/16 14:45 Pulse Ox 97 12/03/16 14:45 Intake & Output 12/02/16 12/03/16 12/03/16 18:59 06:59 18:59 Intake Total 240 500 Output Total 800 350 Balance -560 -350 500 Intake: Oral 240 500 Output: Urine 800 350 Other: Voiding Method Indwelling Catheter Indwelling Catheter Indwelling Catheter # Bowel Movements 0 0 - Exam PHYSICAL EXAMINATION: HEENT: Head is atraumatic, normocephalic. Pupils equal, round. Neck is supple. There is no elevated jugular venous pressure. HEART EXAMINATION: Heart sounds regular, S1 and S2 with a systolic murmur. CHEST EXAMINATION: Lungs reveal scattered coarse rhonchi that clear with cough. No chest wall tenderness is noted on palpation or with deep breathing. ABDOMEN: Soft, nontender. Bowel sounds are heard. No organomegaly noted. EXTREMITIES: 1+ peripheral pulses with no evidence of peripheral edema and no calf tenderness noted. She does have significant skin discoloration on the arms and legs. Bakers cyst is noted.. NEUROLOGIC patient is awake and alert. . - Labs CBC & Chem 7: 12/03/16 06:23 12/03/16 06:23 Labs: Abnormal Lab Results - Last 24 Hours (Table) 12/02/16 12/03/16 12/03/16 Range/Units 14:25 06:23 06:23 RBC 3.63 L (4.30-5.90) m/uL Hgb 11.8 L (13.0-17.5) gm/dL Hct 36.4 L (39.0-53.0) % MCV 100.3 H (80.0-100.0) fL Sodium 132 L (137-145) mmol/L Total Creatine Kinase 44 L (55-170) U/L Troponin I 0.241 H* (0.000-0.034) ng/mL Assessment and Plan Plan: Assessment and plan #1 fall secondary to unsteadiness, no clear-cut syncope #2 abnormal troponins, not suggestive of acute coronary syndrome, likely secondary to oxygen supply and demand mismatch #3 hypertension, antihypertensive agents recently discontinued due to significant hypotension, blood pressure currently 100-108 systolic #4 COPD #5 chronic bronchitis #6 cardiomyopathy, ejection fraction 30-35% From cardiology's perspective, we will continue the same at this time. Continue to monitor blood pressure closely. Will carefully add cardiac medications depending on blood pressure. We will continue to follow the patient and provide further recommendations accordingly. RIGHT OF WAY APPRAISER note has been reviewed, I agree with a documented findings and plan of care. Patient was seen and examined.
[2016-12-03] MEDS: TAMSULOSIN 0.4 MG CAP.ER.24H PO SCH (19:56)
--- NOTE | 2016-12-03 19:57 | P.CNOR ---
History of Present Illness - [facility] Consult date: 12/03/16 Requesting physician: Trudi Ureña Consult reason: other (Left knee Velazquez's cyst) History of present illness: Patient is a pleasant 89-year-old male who is well known to our service who is seen and examined at the bedside after we are consulted following the finding of a Velazquez cyst in the left knee. Patient was recently evaluated in our office in the outpatient setting for left lower extremity swelling and pain. A venous ultrasound Doppler was taken at the time that was negative for DVT and was positive for popliteal cyst. Patient was scheduled for an MRI of the left knee be performed today. Prior to scheduled MRI, patient had a fall at home and was brought to the emergency department for further evaluation. Following the fall he was unable to get up off the floor. Since presentation to the emergency department and further evaluation, patient was found to have elevated troponin levels and a urinary tract infection. Patient is known to have a Mina catheter placed long-term. Patient is known to have difficulty with ambulation. At the time of presentation to our office he was seen and evaluated in a wheelchair. Patient not currently complaining of significant low back pain or lower extremity pain or radiculopathy. He continues to have some swelling in his left knee. He has no acute complaints in regards to his lower extremities bilaterally. Patient is being seen and examined by cardiology. An Echocardiogram was performed yesterday which showed an ejection fraction of 30% to 35%. He was unable to have his scheduled MRI of the left knee performed today. Past Medical History Past Medical History: Asthma, Cancer, COPD, Eye Disorder, Hypertension, Pneumonia, Prostate Disorder Additional Past Medical History / Comment(s): Macular degeneration/ glaucoma R eye, tracheobronchitis, BPH, indwelling catheter, skin cancer with removal, sinus problems, gout History of Any Multi-Drug Resistant Organisms: MRSA Year Discovered:: 10/16/2009 MDRO Source:: Left forearm Past Surgical History: No Surgical Hx Reported, Hernia Repair, Prostate Surgery Additional Past Surgical History / Comment(s): ruptured testicle at age of 11, bilateral cataract removal, nasal polyps removed, TURP, inguinal hernia repair, L forearm bx. Past Anesthesia/Blood Transfusion Reactions: No Reported Reaction Past Psychological History: Depression Additional Psychological History / Comment(s): Pt states he sometimes has "alittle depression." Denies any thoughts of suicide, states when the time comes, he is ready to . Pt ambulates occasionally with the assist of a cane or walker. He has 4 steps to get into the home and then he stays on the 1st floor. He sleeps in his recliner. His matt and son-in-law live 1 mile away and are active in his care. They take him to his appts. They make sure he has meals. He has VNA. Smoking Status: Former smoker Past Alcohol Use History: Daily Additional Past Alcohol Use History / Comment(s): Pt states he started smoking in 1943 and quit in 1974. He states he used to drink heavily but now drinks 2- 3 beers a day. Past Drug Use History: None Reported - Past Family History Father Family Medical History: Myocardial Infarction ([place]) Additional Family Medical History / Comment(s): pt. states his father in his 50's from a heart attack Medications and Allergies Home Medications Medication Instructions Recorded Confirmed Type Allopurinol [Zyloprim] 300 mg PO DAILY 10/06/14 12/02/16 History Finasteride [Proscar] 5 mg PO DAILY 10/06/14 12/02/16 History Potassium Chloride [Klor-Con 20] 20 meq PO AC-BID 10/06/14 12/02/16 History Silodosin [Rapaflo] 8 mg PO HS 10/06/14 12/02/16 History Travoprost [Travatan Z 0.004%] 1 drop RIGHT EYE HS 10/06/14 12/02/16 History Dorzolamide 2% [Trusopt 2%] 1 drops RIGHT EYE HS 09/14/16 12/02/16 History Furosemide [Lasix] 40 mg PO DAILY 09/14/16 12/02/16 History Budesonide/Formoterol Fumarate 1 puff IH BID 12/02/16 12/02/16 History [Symbicort 160-4.5 Mcg Inhaler] Difluprednate [Durezol] 1 drop OP DAILY 12/02/16 12/02/16 History Fluticasone Propionate [Flovent 50 mcg INHALATION DAILY 12/02/16 12/02/16 History Diskus] Sennosides-Docusate Sodium 1 tab PO DAILY 12/02/16 12/02/16 History [Senokot-S] Allergies Allergy/AdvReac Type Severity Reaction Status Date / Time No Known Allergies Allergy Verified 12/02/16 01:37 Physical Examination Physical exam: Patient is awake, alert, and oriented 3 Vital signs stable Good chest excursion with deep inspiration and expiration; nasal cannula currently intact Abdomen soft nontender Dorsiflexion, plantarflexion, and extensor hallucis longus positive sustained bilaterally but weak throughout range of motion Lower extremity strength globally weaker No lower extremity hyperreflexia bilaterally Evidence of swelling of the left knee No pain with palpation of the left knee No signs or symptoms of DVT; no calf pain No pain with internal and external rotation of the hips bilaterally Neurovascularly intact Mina catheter intact Results Pertinent studies: 12/12/2016: Troponin 0.323 at 8:15 AM Troponin 0.241 at 2:15 PM Urine analysis:. WBC 115, urine RBC 83, urine bacteria rare, Hyaline cast 5, urine mucus rare, blood moderate, urine protein 1+ CT of the head and cervical spine: No definite acute intracranial sequelae from trauma; Multilevel degenerative disc disease and spondylosis; no evidence of fracture - Labs Labs: Abnormal Lab Results - Last 24 Hours (Table) 12/03/16 12/03/16 Range/Units 06:23 06:23 RBC 3.63 L (4.30-5.90) m/uL Hgb 11.8 L (13.0-17.5) gm/dL Hct 36.4 L (39.0-53.0) % MCV 100.3 H (80.0-100.0) fL Sodium 132 L (137-145) mmol/L H & H 12/03/16 Range/Units 06:23 Hgb 11.8 L (13.0-17.5) gm/dL Hct 36.4 L (39.0-53.0) % Result Diagrams: 12/03/16 06:23 12/03/16 06:23 Assessment and Plan (1) Swelling of left knee joint Status: Acute (2) Velazquez's cyst of knee Status: Acute (3) Elevated troponin I level Status: Acute (4) Fall Status: Acute (5) Generalized weakness Status: Acute (6) Urinary tract infection Status: Acute Plan: Plan: 1. We are not currently planning any further invasive treatment or imaging at this time to be performed while in the hospital in regards to his left knee, left lower extremity, or left Velazquez's cyst. At this time he should continue with conservative treatment. We will plan to see him in the outpatient setting for further evaluation treatment. Following discharge, if he is able to obtain his MRI of the left knee we will plan to review this imaging at his next follow- up appointment. 2. Cardiology continue following the patient 3. Medicine to continue following the patient 4. From an orthopedic standpoint, patient is clear for discharge 5. Following discharge, patient may follow-up with Baltazar Traore PA-C or Dr. Duong Torres at [facility] as previously scheduled 6. I have discussed this patient detail Dr. Duong Torres and he agrees with this plan Time with Patient: Less than 30
[2016-12-03] MEDS: QUEtiapine 25 MG TAB PO SCH (21:07)
--- NOTE | 2016-12-03 21:55 | PN ---
DATE OF SERVICE: 12/03/2016 PRESENTING COMPLAINT: Urinary tract infection, confusion. INTERVAL HISTORY: This 89-year-old patient was admitted with severe urinary tract infection somewhat confused. Did tolerate some diet. Pretty much been in bed, lying in bed. Review of systems done for constitutional, cardiovascular, GI, pulmonary; psych relevant findings as above. Current medications are reviewed that include IV ceftriaxone. On examination, temperature 98.8, pulse 58. Respiratory rate 19. Blood pressure 104/73, pulse ox 97% on room air. GENERAL APPEARANCE: Lying in bed, somewhat confused. EYES: Pupils equal. Conjunctivae normal. NECK: JVD not raised. RESPIRATORY: Effort normal. LUNGS: Diminished breath sounds. CARDIOVASCULAR: First and second sounds normal. No edema. ABDOMEN: Soft. Nontender. Liver and spleen not palpable. PSYCHIATRY: Patient cannot questions. The patient appears sensorium slightly altered. INVESTIGATIONS: White count 7.3, hemoglobin 11.8, potassium 3.9, sodium 132. 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 Patient's 2-D echocardiogram EF of 30% to 35%. EKG showed LVH and PVCs. ASSESSMENT: 1. Acute severe urinary tract infection causing sepsis secondary to Mina catheter. 2. Acute delirium from above. 3. Chronic benign prostatic hypertrophy. 4. Troponin leak due to hemodynamic mismatch. 5. Essential hypertension. 6. Chronic obstructive pulmonary disease, probably an ex-smoker. 7. Medical debility. 8. Probably Alzheimer's dementia. 9. Cardiomyopathy; ejection fraction 30% to 35%. Cause undetermined. PLAN: Patient will be put on sleep cycle, spoke to the nurse. Also given Seroquel at night and we will stop patient's Symbicort as I do not think he is a candidate given his overall condition. We will use nebulized bronchodilator, cut back the dose of aspirin to 81 mg. Overall prognosis is guarded. Patient is slow to respond and will make sure patient has urine culture and blood culture in place. Follow.
[2016-12-04 01:51] LABS: Appearance,Urine Clear (Clear); Bacteria,Urine Rare /hpf; Bilirubin,Urine Negative (Negative); Glucose,Urine (UA) Negative (Negative); Ketones,Urine Negative (Negative); Leukocyte Esterase,Urine Moderate (Negative); Mucus,Urine Rare /hpf; Nitrite,Urine Negative (Negative); PH, Urine 5.5 (5.0-8.0); Particle Count 2401; Protein,Urine Negative (Negative); RBC,Urine 2 /hpf (0-5); Specific Gravity,Urine 1.009 (1.001-1.035); UA Billing (MACRO vs. MICRO) MICRO; Urobilinogen,Urine <2.0 mg/dL (<2.0); WBC,Urine 9 /hpf (0-5)
[2016-12-04] MEDS: SYMBICORT 160-4.5 MCG INHALER INHALATION SCH ×2 (08:09→19:32)
[2016-12-04] MEDS: ALLOPURINOL 300 MG TAB PO SCH (08:37)
[2016-12-04] MEDS: ASPIRIN 325 MG TAB PO SCH (08:37)
[2016-12-04] MEDS: VIT A,C & E-LUTEIN-MINERALS 1 EACH TAB PO SCH ×2 (08:37→20:09)
[2016-12-04] MEDS: HEPARIN SODIUM,PORCINE 5,000 UNIT/ML 1 ML VIAL SQ SCH ×2 (08:37→20:09)
[2016-12-04] MEDS: FINASTERIDE 5 MG TAB PO SCH (08:38)
[2016-12-04] MEDS: LATANOPROST 0.005% OPHTH DROPS 2.5 ML BTL RIGHT EYE SCH (08:38)
[2016-12-04] MEDS: DORZOLAMIDE HCL 2% DROPS 10 ML BTL RIGHT EYE SCH ×2 (08:38→20:09)
[2016-12-04] MEDS: prednisoLONE ACETATE 1% OPHTH DROPS 1 ML BTL LEFT EYE SCH (08:39)
[2016-12-04] MEDS: CHOLECALCIFEROL 1,000 UNIT TAB PO SCH (12:22)
--- NOTE | 2016-12-04 19:59 | PN ---
DATE OF SERVICE: 12/04/2016 PRESENTING COMPLAINT: Urinary tract infection, confusion. INTERVAL HISTORY: This is a patient who presented with severe urinary tract infection, delirium. Eating about 30 to 40% of his diet. Lying in bed. Review of systems done for constitutional, cardiovascular, GI, pulmonary; relevant findings as above. Current medications are reviewed that include IV ceftriaxone. On examination, temperature 97.7, pulse 59, respiration 18, blood pressure 111/60, pulse ox 98% on room air. GENERAL APPEARANCE: Lying in bed, awake. EYES: Pupils equal. Conjunctivae normal. NECK: JVD not raised. Mass not palpable. RESPIRATORY: Effort normal. LUNGS: Decreased breath sounds. CARDIOVASCULAR: First and second sounds normal. No edema. ABDOMEN: Soft, nontender. Liver and spleen not palpable. PSYCHIATRY: Patient answering simple questions. INVESTIGATIONS: No blood work from today. ASSESSMENT: 1. Acute severe urinary tract infection causing sepsis, secondary to Mina catheter causing acute delirium on presentation. 2. Chronic benign prostatic hypertrophy. 3. Troponin leak due to hemodynamic mismatch. 4. Essential hypertension. 5. Chronic obstructive pulmonary disease in an ex-smoker. 6. Medical debility. 7. Alzheimer's dementia. 8. Cardiomyopathy; ejection fraction 30% to 35% cause unknown. PLAN: Continue current medication and treatment plan. Awaiting urine cultures. Will follow.
[2016-12-04] MEDS: QUEtiapine 25 MG TAB PO SCH (20:09)
[2016-12-04] MEDS: TAMSULOSIN 0.4 MG CAP.ER.24H PO SCH (20:09)
[2016-12-05] MEDS: SYMBICORT 160-4.5 MCG INHALER INHALATION SCH ×3 (07:16→19:35)
[2016-12-05] MEDS: LATANOPROST 0.005% OPHTH DROPS 2.5 ML BTL RIGHT EYE SCH (09:31)
[2016-12-05] MEDS: ALLOPURINOL 300 MG TAB PO SCH (09:31)
[2016-12-05] MEDS: DORZOLAMIDE HCL 2% DROPS 10 ML BTL RIGHT EYE SCH ×2 (09:31→20:19)
[2016-12-05] MEDS: ASPIRIN 325 MG TAB PO SCH (09:31)
[2016-12-05] MEDS: prednisoLONE ACETATE 1% OPHTH DROPS 1 ML BTL LEFT EYE SCH (09:31)
[2016-12-05] MEDS: HEPARIN SODIUM,PORCINE 5,000 UNIT/ML 1 ML VIAL SQ SCH ×2 (09:32→20:19)
[2016-12-05] MEDS: FINASTERIDE 5 MG TAB PO SCH (09:32)
[2016-12-05] MEDS: VIT A,C & E-LUTEIN-MINERALS 1 EACH TAB PO SCH ×2 (09:32→20:19)
[2016-12-05] MEDS: CHOLECALCIFEROL 1,000 UNIT TAB PO SCH (12:19)
[2016-12-05] MEDS: QUEtiapine 25 MG TAB PO SCH (20:19)
[2016-12-05] MEDS: TAMSULOSIN 0.4 MG CAP.ER.24H PO SCH (20:19)
[2016-12-05] MEDS: CEFUROXIME 250 MG TAB PO SCH (20:30)
[2016-12-06] MEDS: SYMBICORT 160-4.5 MCG INHALER INHALATION SCH (07:10)
--- NOTE | 2016-12-06 08:34 | PN ---
DATE OF SERVICE: 12/05/2016 PRESENTING COMPLAINT: UTI and confusion. INTERVAL HISTORY: This is a patient who presented with severe urinary tract infection, delirium, eating his meals. Appetite is getting better. Pretty much in bed. Review of systems done for constitutional, cardiovascular, GI, pulmonary; relevant findings as above. Current medications are reviewed that include IV ceftriaxone. On examination, afebrile, pulse 82, respiration 18, blood pressure 173/72, pulse ox 100% on room air. GENERAL APPEARANCE: Lying in bed, awake. EYES: Pupils equal. Conjunctivae normal. NECK: JVD not raised. Mass not palpable. RESPIRATORY: Effort normal. LUNGS: Diminished breath sounds. CARDIOVASCULAR: First and second sounds normal. No edema. ABDOMEN: Soft, nontender. Liver and spleen not palpable. PSYCHIATRY: Awake, answering simple questions. INVESTIGATIONS: Urine cultures negative ( ) antibiotics. Blood culture negative until now. ASSESSMENT: 1. Acute severe urinary tract infection, chronic sepsis, secondary to Mina catheter causing acute delirium on presentation and clinical improvement. 2. Chronic benign prostate hypertrophy. 3. Troponin leak due to hemodynamic mismatch. 4. Essential hypertension. 5. Chronic obstructive pulmonary disease in an ex-smoker. 6. Medical debility. 7. 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 8. Cardiomyopathy; ejection fraction 30% to 35% cause unknown. PLAN: Continue current medication and treatment plan. We will switch the patient over to oral antibiotics tomorrow.
[2016-12-06 08:46] VITALS: RESP 16
[2016-12-06 09:36] LABS: Anion Gap 10 mmol/L; Blood Urea Nitrogen 14 mg/dL (9-20); Calcium 8.6 mg/dL (8.4-10.2); Carbon Dioxide 23 mmol/L (22-30); Chloride 103 mmol/L (98-107); Glucose 101 mg/dL (74-99); Non-African American GFR(MDRD) >60 (>60 ml/min/1.73 sqM); Potassium 4.1 mmol/L (3.5-5.1); Sodium 136 mmol/L (137-145)
[2016-12-06] MEDS: CEFUROXIME 250 MG TAB PO SCH (09:45)
[2016-12-06] MEDS: VIT A,C & E-LUTEIN-MINERALS 1 EACH TAB PO SCH (09:45)
[2016-12-06] MEDS: prednisoLONE ACETATE 1% OPHTH DROPS 1 ML BTL LEFT EYE SCH (09:45)
[2016-12-06] MEDS: DORZOLAMIDE HCL 2% DROPS 10 ML BTL RIGHT EYE SCH (09:45)
[2016-12-06] MEDS: FINASTERIDE 5 MG TAB PO SCH (09:45)
[2016-12-06] MEDS: LATANOPROST 0.005% OPHTH DROPS 2.5 ML BTL RIGHT EYE SCH (09:45)
[2016-12-06] MEDS: ASPIRIN 325 MG TAB PO SCH (09:46)
[2016-12-06] MEDS: HEPARIN SODIUM,PORCINE 5,000 UNIT/ML 1 ML VIAL SQ SCH (09:46)
[2016-12-06 09:48] LABS: Basophils % (A) 0 %; CH 32.9; CHCM 32.9; Eosinophils # (A) 0.1 k/uL (0-0.7); Eosinophils % (A) 3 %; HCT 35.4 % (39.0-53.0); HGB 11.5 gm/dL (13.0-17.5); Luc # (Auto) 0.11; Luc % (Auto) 2; Lymphocytes % (A) 21 %; MCH 32.7 pg (25.0-35.0); MCHC 32.5 g/dL (31.0-37.0); MCV 100.5 fL (80.0-100.0); Macrocytosis Slight; Mean Platelet Volume 7.2; Monocytes # (A) 0.3 k/uL (0-1.0); Monocytes % (A) 6 %; Neutrophils # (A) 3.4 k/uL (1.3-7.7); Neutrophils % (A) 69 %; RBC 3.52 m/uL (4.30-5.90); RDW 13.9 % (11.5-15.5); WBC (Perox) 5.13
[2016-12-06] MEDS: CHOLECALCIFEROL 1,000 UNIT TAB PO SCH (11:55)
[2016-12-06] MEDS: ALLOPURINOL 300 MG TAB PO SCH (16:32)
--- NOTE | 2016-12-06 16:37 | DS ---
DATE OF ADMISSION: 12/02/2016 DATE OF DISCHARGE: 12/06/2016 FINAL DIAGNOSES: 1. Acute severe urinary tract infection causing sepsis secondary to chronic Mina catheter causing acute delirium on presentation. 2. Chronic benign prostatic hypertrophy. 3. Troponin leak due to hemodynamic mismatch. 4. Essential hypertension. 5. Chronic obstructive pulmonary disease in an ex-smoker. 6. Medical debility. 7. Alzheimer's dementia with no behavioral disturbance, late-onset type. 8. 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 HOSPITAL COURSE: This patient presented with UTI with sepsis, some delirium. EKG was non-specific. Two-D echocardiogram showed an EF of 30% to 35%. CT scan of the brain showed evidence of old infarcts. On examination, patient is able to tolerate about 50% of his diet. Following commands. Weak and tired. Cultures were negative. CONSULTATION: Dr. Torres from Orthopedics for Velazquez's cyst, which is chronic, for conservative management. DISCHARGE MEDICATIONS: 1. Allopurinol 300 mg a day. 2. Proscar 5 mg p.o. daily. 3. Rapaflo 8 mg p.o. at bedtime. 4. Travatan Z 0.004% one drop to right eye at bedtime. 5. Trusopt 2% one drop to right eye at bedtime. 6. Durezol 1 drop OP daily. 7. Senokot-S 1 tablet p.o. daily. 8. Aspirin 81 mg p.o. daily. 9. Pulmicort 0.5 mg inhalation b.i.d. 10. Ceftin 250 mg p.o. b.i.d.; 10 tablets. 11. Seroquel 25 mg p.o. at bedtime. 12. DuoNeb q.i.d. 13. Aldactone 25 mg a day. DISPOSITION: [place]. Follow up with Dr. Bolton on 12/07/2016. CODE STATUS: DO NOT RESUSCITATE.
[2016-12-06 17:11] VITALS: BP 142/59; PULSE 51; TEMP 97.4
== END 2016-12-06 17:25 | DRG 698 ==
LOC: EC 01:23 → 6SEL 05:55 → 4MS4W 12-03 15:15
PROVIDERS: ADMIT Hospitalist; ATTEND Hospitalist
DX: T83.511A Infection and inflammatory reaction due to indwelling urethral catheter, initial encounter (principal); A41.9 Sepsis, unspecified organism; I42.9 Cardiomyopathy, unspecified; I11.9 Hypertensive heart disease without heart failure; G30.1 Alzheimer's disease with late onset; F05 Delirium due to known physiological condition; J44.9 Chronic obstructive pulmonary disease, unspecified; Z66 Do not resuscitate; N39.0 Urinary tract infection, site not specified; M25.462 Effusion, left knee; F02.80 Dementia in other diseases classified elsewhere, unspecified severity, without behavioral disturbance, psychotic disturbance, mood disturbance, and anxiety; S50.812A Abrasion of left forearm, initial encounter; R51 Headache; M79.604 Pain in right leg; M79.605 Pain in left leg; I49.3 Ventricular premature depolarization; R00.0 Tachycardia, unspecified; I49.1 Atrial premature depolarization; M17.12 Unilateral primary osteoarthritis, left knee; R53.1 Weakness; M71.22 Synovial cyst of popliteal space [Baker], left knee; J45.909 Unspecified asthma, uncomplicated; M10.9 Gout, unspecified; H35.30 Unspecified macular degeneration; F32.9 Major depressive disorder, single episode, unspecified; R74.8 Abnormal levels of other serum enzymes; M50.30 Other cervical disc degeneration, unspecified cervical region; M47.812 Spondylosis without myelopathy or radiculopathy, cervical region; H40.9 Unspecified glaucoma; N40.0 Benign prostatic hyperplasia without lower urinary tract symptoms; R26.2 Difficulty in walking, not elsewhere classified; Z79.51 Long term (current) use of inhaled steroids; Z16.24 Resistance to multiple antibiotics; Z87.891 Personal history of nicotine dependence; Z79.899 Other long term (current) drug therapy; Z98.42 Cataract extraction status, left eye; Z86.14 Personal history of Methicillin resistant Staphylococcus aureus infection; Z82.49 Family history of ischemic heart disease and other diseases of the circulatory system; Z85.828 Personal history of other malignant neoplasm of skin; Z98.41 Cataract extraction status, right eye; Z87.01 Personal history of pneumonia (recurrent); Z96.0 Presence of urogenital implants; Z91.81 History of falling; Z90.79 Acquired absence of other genital organ(s); Z86.19 Personal history of other infectious and parasitic diseases; Z87.09 Personal history of other diseases of the respiratory system; W01.10XA Fall on same level from slipping, tripping and stumbling with subsequent striking against unspecified object, initial encounter; Y93.9 Activity, unspecified; Y84.6 Urinary catheterization as the cause of abnormal reaction of the patient, or of later complication, without mention of misadventure at the time of the procedure; Y92.009 Unspecified place in unspecified non-institutional (private) residence as the place of occurrence of the external cause
CPT/HCPCS: 36415; 70450; 71010; 72125; 80048; 80053; 80061; 81001; 82550; 82553; 83605; 83735; 84484; 85025; 85027; 87040; 87086; 87502; 93005; 93306; 94640; 96365; 96372; 99291

== ENCOUNTER 2016-12-18 01:24 | Inpatient (IN) | payer MEDICARE, OTHER ==
[2016-12-18] MEDS ORDERED: IPRATROPIUM-ALBUTEROL 3 ML NEB INHALATION STA (01:42)
--- NOTE | 2016-12-18 01:51 | ED ---
SOB HPI - General Stated Complaint: OSMAR Time Seen by Provider: 12/18/16 01:28 Source: patient, family Limitations: altered mental status (There does appear to be some underlying dementia) - History of Present Illness Initial Comments: This patient is an 89-year-old man transferred here from long-term to be evaluated after he developed shortness of breath. Patient's son-in-law is at bedside and states that the shortness of breath seems to been getting progressively worse over the past 2 days. Patient is unable to lie flat as he feels like he is not able to breathe. Patient states that he feels like he has to cough but he is not able to bring up any sputum. He is not aware of any fever. He denies chest pain, leg pain or swelling. Patient not aware of any dark tarry or bloody stools. Patient has chronic indwelling Mina catheter not aware of any change in urine output. MD Complaint: shortness of breath, cough Onset/Timin -: days(s) Worsens With: lying flat Known History Of: COPD Associated Symptoms: denies other symptoms Treatments Prior to Arrival: oxygen - Related Data Home Medications Medication Instructions Recorded Confirmed Finasteride [Proscar] 5 mg PO DAILY 10/06/14 12/18/16 Silodosin [Rapaflo] 8 mg PO HS 10/06/14 12/18/16 Travoprost [Travatan Z 0.004%] 1 drop RIGHT EYE HS 10/06/14 12/18/16 Dorzolamide 2% [Trusopt 2%] 1 drops RIGHT EYE HS 09/14/16 12/18/16 Difluprednate [Durezol] 1 drop OP DAILY 12/02/16 12/18/16 Sennosides-Docusate Sodium 1 tab PO DAILY 12/02/16 12/18/16 [Senokot-S] Previous Rx's Medication Instructions Recorded Aspirin 81 mg PO DAILY #1 chewable 12/06/16 Budesonide [Pulmicort] 0.5 mg INHALATION BID #1 neb 12/06/16 Ipratropium-Albuterol Nebulize 3 ml INHALATION QID #1 neb 12/06/16 [Duoneb 0.5 mg-3 mg/3 ml Soln] QUEtiapine [SEROquel] 25 mg PO HS #30 tab 12/06/16 Allergies Allergy/AdvReac Type Severity Reaction Status Date / Time No Known Allergies Allergy Verified 12/18/16 02:13 Review of Systems ROS Statement: Those systems with pertinent positive or pertinent negative responses have been documented in the HPI. ROS Other: All systems not noted in ROS Statement are negative. Limitations: ROS unobtainable due to patients medical condition (Dementia versus delirium) Respiratory: Reports: cough, dyspnea. Denies: hemoptysis Cardiovascular: Denies: chest pain Gastrointestinal: Denies: abdominal pain, vomiting Musculoskeletal: Denies: back pain Past Medical History Past Medical History: Asthma, Cancer, COPD, Eye Disorder, Hypertension, Pneumonia, Prostate Disorder Additional Past Medical History / Comment(s): Macular degeneration/ glaucoma R eye, tracheobronchitis, BPH, indwelling catheter, skin cancer with removal, sinus problems, gout History of Any Multi-Drug Resistant Organisms: MRSA Date of last positivie culture/infection: 10/16/2009 MDRO Source:: Left forearm Past Surgical History: No Surgical Hx Reported, Hernia Repair, Prostate Surgery Additional Past Surgical History / Comment(s): ruptured testicle at age of 11, bilateral cataract removal, nasal polyps removed, TURP, inguinal hernia repair, L forearm bx. Past Anesthesia/Blood Transfusion Reactions: No Reported Reaction Past Psychological History: Depression Additional Psychological History / Comment(s): Pt states he sometimes has "alittle depression." Denies any thoughts of suicide, states when the time comes, he is ready to . Pt ambulates occasionally with the assist of a cane or walker. He has 4 steps to get into the home and then he stays on the 1st floor. He sleeps in his recliner. His matt and son-in-law live 1 mile away and are active in his care. They take him to his appts. They make sure he has meals. He has VNA. Smoking Status: Former smoker Past Alcohol Use History: Daily Additional Past Alcohol Use History / Comment(s): Pt states he started smoking in 1943 and quit in 1974. He states he used to drink heavily but now drinks 2- 3 beers a day. Past Drug Use History: None Reported - Past Family History Father Family Medical History: Myocardial Infarction ([place]) Additional Family Medical History / Comment(s): pt. states his father in his 50's from a heart attack General Exam General appearance: alert, in distress Head exam: Present: atraumatic, normocephalic ENT exam: Present: mucous membranes dry Respiratory exam: Present: respiratory distress, wheezes, rhonchi. Absent: stridor Cardiovascular Exam: Present: tachycardia, irregular rhythm, normal heart sounds. Absent: systolic murmur, diastolic murmur, rubs, gallop GI/Abdominal exam: Present: soft. Absent: tenderness, guarding, rebound Extremities exam: Present: normal capillary refill. Absent: pedal edema, calf tenderness Back exam: Present: normal inspection. Absent: CVA tenderness (R), CVA tenderness (L) Neurological exam: Present: alert Skin exam: Present: warm, dry, intact, normal color. Absent: rash Course Vital Signs 12/18/16 12/18/16 12/18/16 02:05 02:13 02:15 Temperature 97.0 F L Pulse Rate 117 H 118 H 110 H Respiratory 24 Rate Blood Pressure 173/71 O2 Sat by Pulse 97 Oximetry 12/18/16 12/18/16 12/18/16 03:06 03:19 03:37 Temperature 97.2 F L Pulse Rate 105 H 99 Respiratory 22 20 20 Rate Blood Pressure 137/89 O2 Sat by Pulse 96 96 Oximetry 12/18/16 12/18/16 12/18/16 04:50 04:57 05:01 Temperature Pulse Rate 107 H 115 H 117 H Respiratory 19 Rate Blood Pressure 138/89 O2 Sat by Pulse 99 Oximetry Medical Decision Making - Medical Decision Making This patient is an 89-year-old man transferred from the long-term for dyspnea which is been getting progressively worse over the past 2 days. There does appear to be underlying COPD and then probably an element of CHF as well. Patient will be admitted for further treatment for these. The patient's urine found to be grossly contaminated but this does appear to be due to colonized Mina catheter. A culture will be pending. - Lab Data Result diagrams: 12/18/16 02:00 12/18/16 02:00 Lab Results 12/18/16 12/18/16 12/18/16 Range/Units 02:00 02:00 02:00 WBC 7.7 (3.8-10.6) k/uL RBC 3.98 L (4.30-5.90) m/uL Hgb 12.6 L (13.0-17.5) gm/dL Hct 38.8 L (39.0-53.0) % MCV 97.4 (80.0-100.0) fL MCH 31.8 (25.0-35.0) pg MCHC 32.6 (31.0-37.0) g/dL RDW 13.9 (11.5-15.5) % Plt Count 323 (150-450) k/uL Neutrophils % 76 % Lymphocytes % 12 % Monocytes % 5 % Eosinophils % 4 % Basophils % 1 % Neutrophils # 5.8 (1.3-7.7) k/uL Lymphocytes # 0.9 L (1.0-4.8) k/uL Monocytes # 0.4 (0-1.0) k/uL Eosinophils # 0.3 (0-0.7) k/uL Basophils # 0.1 (0-0.2) k/uL PT (9.0-12.0) sec INR (<1.1) APTT (22.0-30.0) sec D-Dimer (<0.60) mg/L FEU Sodium 141 (137-145) mmol/L Potassium 4.8 (3.5-5.1) mmol/L Chloride 103 (98-107) mmol/L Carbon Dioxide 25 (22-30) mmol/L Anion Gap 13 mmol/L BUN 17 (9-20) mg/dL Creatinine 0.70 (0.66-1.25) mg/dL Est GFR (MDRD) Af Amer >60 (>60 ml/min/1.73 sqM) Est GFR (MDRD) Non-Af >60 (>60 ml/min/1.73 sqM) Glucose 94 (74-99) mg/dL Plasma Lactic Acid Cesar (0.7-2.0) mmol/L Calcium 9.6 (8.4-10.2) mg/dL Magnesium 2.1 (1.6-2.3) mg/dL Total Bilirubin 1.6 H (0.2-1.3) mg/dL AST 23 (17-59) U/L ALT 25 (21-72) U/L Alkaline Phosphatase 109 (38-126) U/L Total Creatine Kinase 122 (55-170) U/L CK-MB (CK-2) 5.8 H* (0.0-2.4) ng/mL CK-MB (CK-2) Rel Index 4.8 Troponin I 0.013 (0.000-0.034) ng/mL NT-Pro-B Natriuret Pep pg/mL Total Protein 6.6 (6.3-8.2) g/dL Albumin 3.5 (3.5-5.0) g/dL Urine Color Urine Appearance (Clear) Urine pH (5.0-8.0) Ur Specific [place] (1.001-1.035) Urine Protein (Negative) Urine Glucose (UA) (Negative) Urine Ketones (Negative) Urine Blood (Negative) Urine Nitrite (Negative) Urine Bilirubin (Negative) Urine Urobilinogen (<2.0) mg/dL Ur Leukocyte Esterase (Negative) Urine RBC (0-5) /hpf Urine WBC (0-5) /hpf Hyaline Casts (0-2) /lpf Urine Mucus (None) /hpf 12/18/16 12/18/16 12/18/16 Range/Units 02:00 02:00 02:00 WBC (3.8-10.6) k/uL RBC (4.30-5.90) m/uL Hgb (13.0-17.5) gm/dL Hct (39.0-53.0) % MCV (80.0-100.0) fL MCH (25.0-35.0) pg MCHC (31.0-37.0) g/dL RDW (11.5-15.5) % Plt Count (150-450) k/uL Neutrophils % % Lymphocytes % % Monocytes % % Eosinophils % % Basophils % % Neutrophils # (1.3-7.7) k/uL Lymphocytes # (1.0-4.8) k/uL Monocytes # (0-1.0) k/uL Eosinophils # (0-0.7) k/uL Basophils # (0-0.2) k/uL PT 11.0 (9.0-12.0) sec INR 1.1 (<1.1) APTT 27.0 (22.0-30.0) sec D-Dimer 3.49 H (<0.60) mg/L FEU Sodium (137-145) mmol/L Potassium (3.5-5.1) mmol/L Chloride (98-107) mmol/L Carbon Dioxide (22-30) mmol/L Anion Gap mmol/L BUN (9-20) mg/dL Creatinine (0.66-1.25) mg/dL Est GFR (MDRD) Af Amer (>60 ml/min/1.73 sqM) Est GFR (MDRD) Non-Af (>60 ml/min/1.73 sqM) Glucose (74-99) mg/dL Plasma Lactic Acid Cesar 0.9 (0.7-2.0) mmol/L Calcium (8.4-10.2) mg/dL Magnesium (1.6-2.3) mg/dL Total Bilirubin (0.2-1.3) mg/dL AST (17-59) U/L ALT (21-72) U/L Alkaline Phosphatase (38-126) U/L Total Creatine Kinase (55-170) U/L CK-MB (CK-2) (0.0-2.4) ng/mL CK-MB (CK-2) Rel Index Troponin I (0.000-0.034) ng/mL NT-Pro-B Natriuret Pep 2190 pg/mL Total Protein (6.3-8.2) g/dL Albumin (3.5-5.0) g/dL Urine Color Urine Appearance (Clear) Urine pH (5.0-8.0) Ur Specific [place] (1.001-1.035) Urine Protein (Negative) Urine Glucose (UA) (Negative) Urine Ketones (Negative) Urine Blood (Negative) Urine Nitrite (Negative) Urine Bilirubin (Negative) Urine Urobilinogen (<2.0) mg/dL Ur Leukocyte Esterase (Negative) Urine RBC (0-5) /hpf Urine WBC (0-5) /hpf Hyaline Casts (0-2) /lpf Urine Mucus (None) /hpf 12/18/16 Range/Units 02:00 WBC (3.8-10.6) k/uL RBC (4.30-5.90) m/uL Hgb (13.0-17.5) gm/dL Hct (39.0-53.0) % MCV (80.0-100.0) fL MCH (25.0-35.0) pg MCHC (31.0-37.0) g/dL RDW (11.5-15.5) % Plt Count (150-450) k/uL Neutrophils % % Lymphocytes % % Monocytes % % Eosinophils % % Basophils % % Neutrophils # (1.3-7.7) k/uL Lymphocytes # (1.0-4.8) k/uL Monocytes # (0-1.0) k/uL Eosinophils # (0-0.7) k/uL Basophils # (0-0.2) k/uL PT (9.0-12.0) sec INR (<1.1) APTT (22.0-30.0) sec D-Dimer (<0.60) mg/L FEU Sodium (137-145) mmol/L Potassium (3.5-5.1) mmol/L Chloride (98-107) mmol/L Carbon Dioxide (22-30) mmol/L Anion Gap mmol/L BUN (9-20) mg/dL Creatinine (0.66-1.25) mg/dL Est GFR (MDRD) Af Amer (>60 ml/min/1.73 sqM) Est GFR (MDRD) Non-Af (>60 ml/min/1.73 sqM) Glucose (74-99) mg/dL Plasma Lactic Acid Cesar (0.7-2.0) mmol/L Calcium (8.4-10.2) mg/dL Magnesium (1.6-2.3) mg/dL Total Bilirubin (0.2-1.3) mg/dL AST (17-59) U/L ALT (21-72) U/L Alkaline Phosphatase (38-126) U/L Total Creatine Kinase (55-170) U/L CK-MB (CK-2) (0.0-2.4) ng/mL CK-MB (CK-2) Rel Index Troponin I (0.000-0.034) ng/mL NT-Pro-B Natriuret Pep pg/mL Total Protein (6.3-8.2) g/dL Albumin (3.5-5.0) g/dL Urine Color Red Urine Appearance Turbid (Clear) Urine pH 5.5 (5.0-8.0) Ur Specific [place] 1.017 (1.001-1.035) Urine Protein 2+ H (Negative) Urine Glucose (UA) Negative (Negative) Urine Ketones 1+ H (Negative) Urine Blood Large H (Negative) Urine Nitrite Negative (Negative) Urine Bilirubin Negative (Negative) Urine Urobilinogen <2.0 (<2.0) mg/dL Ur Leukocyte Esterase Large H (Negative) Urine RBC >182 H (0-5) /hpf Urine WBC >182 H (0-5) /hpf Hyaline Casts 57 H (0-2) /lpf Urine Mucus Moderate H (None) /hpf - EKG Data -: EKG Interpreted by Me EKG shows normal: intervals (Normal) When compared to previous EKG there are: other (The patient's underlying rhythm appears to be bigeminy. There was one episode of 3 consecutive ventricular beats. Patient also has PVCs.) Interpretation: nonspecific ST-T wave changes Disposition Clinical Impression: Congestive heart failure, Acute exacerbation of chronic obstructive airways disease Disposition: ADMITTED IP TO THIS HOSP Condition: Poor
[2016-12-18 02:22] LABS: Basophils # (A) 0.1 k/uL (0-0.2); Basophils % (A) 1 %; Eosinophils # (A) 0.3 k/uL (0-0.7); Eosinophils % (A) 4 %; HCT 38.8 % (39.0-53.0); HDW 2.97; HGB 12.6 gm/dL (13.0-17.5); Luc # (Auto) 0.19; Luc % (Auto) 2; Lymphocytes # (A) 0.9 k/uL (1.0-4.8); Lymphocytes % (A) 12 %; MCH 31.8 pg (25.0-35.0); MCHC 32.6 g/dL (31.0-37.0); MCV 97.4 fL (80.0-100.0); Mean Platelet Volume 6.6; Monocytes # (A) 0.4 k/uL (0-1.0); Monocytes % (A) 5 %; Neutrophils # (A) 5.8 k/uL (1.3-7.7); Neutrophils % (A) 76 %; RBC 3.98 m/uL (4.30-5.90); RDW 13.9 % (11.5-15.5); WBC 7.7 k/uL (3.8-10.6)
--- NOTE | 2016-12-18 02:29 | XR ---
EXAM: XR Chest, 1 View. CLINICAL HISTORY: Reason: dyspnea TECHNIQUE: Frontal view of the chest. COMPARISON: 12/02/16 FINDINGS: Lungs: Minimal streaky density in the left lung base. Pleural space: Unremarkable. No pneumothorax. Heart: Stable cardiomegaly. Bones/joints: Unremarkable. Vasculature: Tortuous calcified thoracic aorta, more pronounced which may reflect slight rotated position. As clinically indicated, consider further evaluation with chest CT to better visualize the mediastinum Tubes, lines and devices: Overlying chest leads obscure portion of the chest. IMPRESSION: Prominent mediastinum which may reflect technique. Consider further evaluation with chest CT for better visualization as indicated. Stable cardiomegaly. Mild left basilar atelectasis.
[2016-12-18 02:32] LABS: ALT 25 U/L (21-72); AST 23 U/L (17-59); Alkaline Phosphatase 109 U/L (38-126); Anion Gap 13 mmol/L; Blood Urea Nitrogen 17 mg/dL (9-20); Calcium 9.6 mg/dL (8.4-10.2); Carbon Dioxide 25 mmol/L (22-30); Chloride 103 mmol/L (98-107); Glucose 94 mg/dL (74-99); Magnesium 2.1 mg/dL (1.6-2.3); Non-African American GFR(MDRD) >60 (>60 ml/min/1.73 sqM); Potassium 4.8 mmol/L (3.5-5.1); Sodium 141 mmol/L (137-145); Total Bilirubin 1.6 mg/dL (0.2-1.3); Total Protein 6.6 g/dL (6.3-8.2)
[2016-12-18 02:35] LABS: Appearance,Urine Turbid (Clear); Bilirubin,Urine Negative (Negative); Glucose,Urine (UA) Negative (Negative); Ketones,Urine 1+ (Negative); Leukocyte Esterase,Urine Large (Negative); Mucus,Urine Moderate /hpf; Nitrite,Urine Negative (Negative); PH, Urine 5.5 (5.0-8.0); Particle Count 33062; Protein,Urine 2+ (Negative); RBC,Urine >182 /hpf (0-5); Specific Gravity,Urine 1.017 (1.001-1.035); UA Billing (MACRO vs. MICRO) MICRO; Urobilinogen,Urine <2.0 mg/dL (<2.0); WBC,Urine >182 /hpf (0-5)
[2016-12-18 02:37] LABS: INR 1.1 (<1.1)
[2016-12-18] MEDS ORDERED: RX INFO: IV CONTRAST WAS GIVEN 1 EACH MISC MISCELLANE PRN (03:08)
[2016-12-18 03:12] LABS: Troponin I 0.013 ng/mL (0.000-0.034)
[2016-12-18 03:20] LABS: Creatine Kinase MB 5.8 ng/mL (0.0-2.4)
[2016-12-18] MEDS ORDERED: NITROGLYCERIN OINT 1 INCH/GM PACKET TOPICAL STA (04:44)
[2016-12-18] MEDS ORDERED: FUROSEMIDE 10 MG/ML 2 ML VIAL IV STA (04:45)
[2016-12-18] MEDS ORDERED: MORPHINE SULFATE 4 MG/ML SYRINGE IV STA (04:45)
[2016-12-18] MEDS ORDERED: ALBUTEROL NEBULIZED 2.5 MG/3 ML INHALATION STA (04:47)
--- NOTE | 2016-12-18 05:13 | CT ---
EXAM: CT Angiography Chest With Intravenous Contrast. CLINICAL HISTORY: Reason: dyspnea TECHNIQUE: Axial computed tomographic angiography images of the chest with intravenous contrast using pulmonary embolism protocol. CTDI is 3/73. 5/13 mGy and DLP is 486.7 mGy-cm This CT exam was performed using one or more of the following dose reduction techniques: automated exposure control, adjustment of the mA and/or kV according to patient size, and/or use of iterative reconstruction technique. MIP reconstructed images were created and reviewed. COMPARISON: No relevant prior studies available. FINDINGS: Limitations: Suboptimal timing of the contrast bolus limit evaluation. Pulmonary arteries: No obvious filling defect in the main pulmonary arteries. Aorta: Tortuous calcified ectatic thoracic aorta. No evidence for dissection. Lungs: Breathing artifact limiting evaluation. Streaky density in the inferior right upper lobe likely atelectasis/scarring. Streaky densities in the lung bases. Bronchiectatic changes in both lower lobes. No mass. Pleural space: No pleural effusion. No pneumothorax. Heart: Coronary artery calcifications. No pericardial effusion. No evidence of RV dysfunction. Bones/joints: Degenerative changes with spondylosis in the thoracic spine. There is narrowing of the disc space at T4- 5 with sclerotic changes and endplate irregularity changes which may reflect extensive degenerative endplate changes and Schmorl's node formation. There is slight anterior displacement of T4 with respect to T5. Consider further evaluation with MR to exclude possibility of inflammatory/infectious process. No acute fracture. Soft tissues: Unremarkable. Lymph nodes: Unremarkable. No enlarged lymph nodes. Spleen: Splenic calcified granulomas. IMPRESSION: 1. No gross pulmonary embolism. 2. Tortuous atherosclerotic thoracic aorta. No dissection. 3. Breathing artifact. Atelectasis/scarring. Mild bronchiectasis. 4. Degenerative changes in the thoracic spine with findings at T4-5 which may reflect extensive degenerative endplate change/Schmorl's node formation. As clinically indicated, consider further evaluation with MR to exclude possibility of inflammatory/infectious process.
--- NOTE | 2016-12-18 08:49 | P.CRDCN ---
History of Present Illness Consult date: 12/18/16 Reason for Consult (text): CHF Chief complaint: Progressively worsening shortness of breath History of present illness: This is a pleasant 89-year-old gentleman who follows with Dr. Archer in the office. Was recently discharged from the hospital on the 13 of this month. Percentage emergency department from an extended care facility after complaining of progressively worsening shortness of breath. 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 EKG on admission showed sinus rhythm with a first-degree AV block and right bundle branch block with bigeminal PVCs as well as a triplet. Chest x-ray on admission showed stable cardiomegaly as well as some mild left basilar atelectasis. D-dimer was elevated therefore CT of the chest was done that was negative for PE. Laboratory values showed potassium 4.8, magnesium 2.1, troponin 0.013 and proBNP of 2190. The patient received Lasix 20 mg IV push 1 in the emergency department and has been ordered to receive 40 mg IV push every 8 hours. He's also been ordered to receive nebulizer treatments and prednisone. Upon examination, patient is resting in bed with head of bed up. Feels he's breathing somewhat better. Continues to complain of cough for which she is unable to expectorate sputum as well as orthopnea. He denies complaints of chest discomfort, palpitations, dizziness, lightheadedness or edema. Past Medical History Past Medical History: Asthma, Cancer, COPD, Eye Disorder, Hypertension, Pneumonia, Prostate Disorder Additional Past Medical History / Comment(s): Macular degeneration/ glaucoma R eye, tracheobronchitis, BPH, indwelling catheter, skin cancer with removal, sinus problems, gout History of Any Multi-Drug Resistant Organisms: MRSA Date of last positivie culture/infection: 10/16/2009 MDRO Source:: Left forearm Past Surgical History: No Surgical Hx Reported, Hernia Repair, Prostate Surgery Additional Past Surgical History / Comment(s): ruptured testicle at age of 11, bilateral cataract removal, nasal polyps removed, TURP, inguinal hernia repair, L forearm bx. Past Anesthesia/Blood Transfusion Reactions: No Reported Reaction Past Psychological History: Depression Additional Psychological History / Comment(s): Pt states he sometimes has "alittle depression." Denies any thoughts of suicide, states when the time comes, he is ready to . Pt ambulates occasionally with the assist of a cane or walker. He has 4 steps to get into the home and then he stays on the 1st floor. He sleeps in his recliner. His matt and son-in-law live 1 mile away and are active in his care. They take him to his appts. They make sure he has meals. He has VNA. Smoking Status: Former smoker Past Alcohol Use History: Daily Additional Past Alcohol Use History / Comment(s): Pt states he started smoking in 1943 and quit in 1974. He states he used to drink heavily but now drinks 2- 3 beers a day. Past Drug Use History: None Reported - Past Family History Father Family Medical History: Myocardial Infarction ([place]) Additional Family Medical History / Comment(s): pt. states his father in his 50's from a heart attack Medications and Allergies Home Medications Medication Instructions Recorded Confirmed Type Finasteride [Proscar] 5 mg PO DAILY 10/06/14 12/18/16 History Silodosin [Rapaflo] 8 mg PO HS 10/06/14 12/18/16 History Travoprost [Travatan Z 0.004%] 1 drop RIGHT EYE HS 10/06/14 12/18/16 History Dorzolamide 2% [Trusopt 2%] 1 drops RIGHT EYE HS 09/14/16 12/18/16 History Difluprednate [Durezol] 1 drop OP DAILY 12/02/16 12/18/16 History Sennosides-Docusate Sodium 1 tab PO DAILY 12/02/16 12/18/16 History [Senokot-S] Allergies Allergy/AdvReac Type Severity Reaction Status Date / Time No Known Allergies Allergy Verified 12/18/16 02:13 Physical Exam Vitals: Vital Signs Temp Pulse Resp BP Pulse Ox 12/18/16 06:20 97 F L 58 L 28 H 127/60 99 Intake and Output 12/17/16 12/18/16 12/18/16 22:59 06:59 14:59 Output Total 1000 Balance -1000 Output: Urine 1000 PHYSICAL EXAMINATION: HEENT: Head is atraumatic, normocephalic. Pupils equal, round. Neck is supple. There is no elevated jugular venous pressure. HEART EXAMINATION: Heart sounds irregular, S1 and S2 with a systolic murmur. CHEST EXAMINATION: Lungs reveal diminished air entry bilaterally with scattered rhonchi that clear with cough. No chest wall tenderness is noted on palpation or with deep breathing. ABDOMEN: Soft, nontender. Bowel sounds are heard. No organomegaly noted. EXTREMITIES: 2+ peripheral pulses with no evidence of peripheral edema and no calf tenderness noted. NEUROLOGIC patient is awake, alert and oriented x3. . Results 12/18/16 02:00 12/18/16 02:00 Current Medications Generic Name Dose Route Start Last Admin Trade Name Freq PRN Reason Stop Dose Admin Albuterol/Ipratropium 3 ml 12/18/16 08:00 Duoneb 0.5 Mg-3 Mg/3 Ml Soln INHALATION RT-Q4H VENECIA Aspirin 81 mg 12/18/16 09:00 Aspirin PO DAILY [facility]IA Budesonide 0.5 mg 12/18/16 08:00 Pulmicort INHALATION RT-BID VENECIA Dorzolamide HCl 1 drops 12/18/16 21:00 Trusopt RIGHT EYE HS [facility] Finasteride 5 mg 12/18/16 09:00 Proscar PO DAILY [facility]IA Furosemide 40 mg 12/18/16 13:00 Lasix IV Q8H VENECIA Latanoprost 1 drops 12/18/16 21:00 Xalatan 0.005% RIGHT EYE HS [facility] Miscellaneous Information 1 each 12/18/16 03:08 12/18/16 05:09 Rx Info: Iv Contrast Was Given MISCELLANE 12/20/16 03:08 1 each DAILY PRN Administration Per Protocol Non-Formulary Medication 1 drop 12/18/16 09:00 Difluprednate [Durezol] OP DAILY [facility] Prednisone 60 mg 12/18/16 09:00 PO DAILY [facility] Quetiapine Fumarate 25 mg 12/18/16 21:00 Seroquel PO HS [facility] Senna/Docusate Sodium 1 each 12/18/16 09:00 Senokot-S PO DAILY [facility] Sodium Chloride 10 ml 12/18/16 09:00 Saline Flush IV BID [facility] Spironolactone 25 mg 12/18/16 09:00 Aldactone PO DAILY [facility] Tamsulosin HCl 0.8 mg 12/18/16 21:00 Flomax PO HS [facility] Intake and Output 12/17/16 12/18/16 12/18/16 22:59 06:59 14:59 Output Total 1000 Balance -1000 Output: Urine 1000 Assessment and Plan Plan: Assessment and plan #1 progressively worsening shortness of breath, likely mostly related to acute exacerbation of COPD with mild acute on chronic systolic congestive heart failure, BNP 2190 #2 hypertension, episodes of hypotension prior to previous admission #3 BPH #4 frequent PVCs and runs of nonsustained VT From cardiology perspective, shortness of breath likely related mostly to COPD cancer patient. We will discontinue patient's prednisone and start Solu-Medrol 40 mg every 6 hours. Will decrease Lasix to 20 mg IV push every 12 hours. We will start the patient on a very small dose of lisinopril 2.5 mg by mouth daily as well as metoprolol 12.5 mg by mouth twice a day. We will continue to follow the patient provide further recommendations accordingly. CASING FLUSHER note has been reviewed, I agree with a documented findings and plan of care. Patient was seen and examined.
[2016-12-18] MEDS ORDERED: predniSONE 20 MG TAB PO SCH (09:00)
[2016-12-18] MEDS ORDERED: NON-FORMULARY DRUG (Difluprednate [Durezol] 1 DROP) OP SCH (09:00)
[2016-12-18] MEDS: FINASTERIDE 5 MG TAB PO SCH (09:20)
[2016-12-18] MEDS: ASPIRIN 81 MG CHEW PO SCH (09:20)
[2016-12-18] MEDS: SPIRONOLACTONE 25 MG TAB PO SCH (09:21)
[2016-12-18] MEDS: SENNOSIDES-DOCUSATE SODIUM 1 EACH TAB PO SCH (09:25)
[2016-12-18] MEDS: BUDESONIDE 0.5 MG/2 ML NEBU INHALATION SCH ×2 (09:45→20:14)
[2016-12-18] MEDS: IPRATROPIUM-ALBUTEROL 3 ML NEB INHALATION SCH ×5 (09:45→23:45)
[2016-12-18] MEDS ORDERED: FUROSEMIDE 10 MG/ML 4 ML VIAL IV SCH (13:00)
[2016-12-18] MEDS: METOPROLOL TARTRATE 12.5 MG TAB PO SCH ×2 (13:16→21:41)
[2016-12-18] MEDS: LISINOPRIL 2.5 MG TAB PO SCH (13:16)
[2016-12-18] MEDS: methylPREDNISolone SOD SUCCI 40 MG/ML 1 ML VIAL IV SCH ×2 (13:17→18:19)
[2016-12-18] MEDS ORDERED: HYDROcodone/APAP 5-325MG 1 EACH TAB PO PRN (14:46)
--- NOTE | 2016-12-18 16:12 | HP ---
DATE OF ADMISSION: PRESENTING COMPLAINT: Short of breath. HISTORY OF PRESENTING COMPLAINT: This is an 89-year-old patient who was recently in the hospital, went home on 12/24/2016. At that time, treated for severe urinary tract infection and causing sepsis, secondary to Mina catheter. The patient additional medical problems include benign prostatic hypertrophy, hypertension, COPD, Alzheimer's dementia, EF of 30% to 35%. Patient also has a Velazquez's cyst. Patient was brought in at the assisted he became more short of breath. Patient's son is at bedside saying that symptoms have gotten worse, a lot worse in the last 2 days, a little bit of rattling in the chest, not really able strong enough to bring up the sputum, has been eating a little bit okay before that. The patient himself not really able to give much of a history. Patient not eating much. Pretty much been in bed. Review of systems cannot be done as patient is barely talking. PAST MEDICAL HISTORY: Chronic Mina cath, benign prostatic hypertrophy, hypertension, COPD medical debility, Alzheimer's dementia. Cardiomyopathy; ejection fraction 30% to 35%, macular degeneration, gout. PAST SURGICAL HISTORY: Hernia repair, prostate surgery, Ruptured testicle age of 11, bilateral cataract removal, nasal polyp removed, TURP, inguinal hernia repair. Left forearm biopsy. SOCIAL HISTORY: Patient was using some amount of cane and a walker. Sleeps in a recliner. Patient smoked for about 20 years; stopped in 1974. The patient was drinking heavily in the past, down to 2 or 3 beers a day. FAMILY HISTORY: Father of a heart attack in his 50s. HOME MEDICATIONS: 1. Milk of magnesia 2500 mg p.o. daily p.r.n. 2. [place] 5, 1 tablet p.o. q.6 p.r.n. 3. Tylenol 650 mg q.4 p.r.n. 4. ( ) Fleet 133 rectal p.r.n. 5. Dulcolax 10 mg rectal daily p.r.n. 6. Mucinex 600 mg p.o. b.i.d. 7. Pulmicort 0.5 mg inhalation b.i.d. 8. Travatan 0.004% one drop to right eye at bedtime. 9. DuoNeb q.i.d. 10. Trusopt 2% one drop to right eye daily. 11. Durezol one drop to right eye daily. 12. Rapaflo 8 mg p.o. q.h.s. 13. Senokot-S 1 tablet p.o. daily. 14. Proscar 5 mg p.o. daily. 15. MiraLax 17 grams p.o. daily. 16. Levaquin 500 mg daily. 17. Ensure Plus one can p.o. daily at 2:00 p.m. 18. Seroquel 25 mg q.h.s. 19. Aspirin 81 mg p.o. daily. ALLERGIES: None. PHYSICAL EXAMINATION: Vital signs on presentation: Temperature 97.4, pulse 110, respiration 20, blood pressure 142/59, pulse of 99% on room air. GENERAL APPEARANCE: Average build, sitting up, somewhat disheveled, tired. EYES: Pupils equal. Conjunctivae pale. HEENT: External appearance of nose and ears normal. Oral cavity with dry mucous membrane. NECK: JVD unable to assess. Mass not palpable. RESPIRATORY: Effort increased. LUNGS: Decreased breath sounds. Some crackles. CARDIOVASCULAR: First and second sounds normal. No edema. ABDOMEN: Soft, nontender. Liver and spleen not palpable. LYMPHATIC: No lymph nodes palpable in the neck or axillae. PSYCHIATRY: She is barely answering questions. Dermatological: Diffuse bruising and dry skin. MUSCULOSKELETAL: Evidence of osteoarthritis in multiple joints. NEUROLOGICAL: Pupils equal. Some facial asymmetry. Does move her limbs. INVESTIGATIONS: White count 7.7, hemoglobin 12.6. Potassium 4.8, BUN 17, creatinine 0.70. Troponin 0.013, 0.022. UA showing leukocyte esterase and WBC. Chest x-ray shows some broadened mediastinum. Fluid in the horizontal fissure and some venous prominence. Patient's BNP is 2190. CT scan of the chest no pulmonary embolism. Some breathing artifacts, evidence of degenerative joint disease. ASSESSMENT: 1. Acute on chronic congestive heart failure exacerbation from systolic dysfunction; ejection fraction 30% to 35%, from underlying hypertensive heart disease. 2. Alzheimer's dementia with no behavioral disturbance. Late onset type. 3. Medical debility. 4. Acute metabolic encephalopathy, multifactorial, present on admission. 5. Chronic obstructive pulmonary disease in an ex-smoker. 6. Essential hypertension. 7. Chronic benign prostatic hypertrophy with urine outflow obstruction with a chronic Mina catheter in place. 8. Chronic Velazquez cyst. 9. Chronic medical debility. 10. Primary osteoarthritis multiple joints, bilateral. 11. CODE STATUS: DNR. PLAN: Patient was put on IV Lasix. Home medications are resumed. Care was discussed with son in law at the bedside. Overall prognosis is guarded. Patient's CODE STATUS is DNR. Patient was put on IV Lasix. Patient's prognosis is not good because of multiple comorbidities and progressive overall poor condition. Copy to Dr. Bolton.
[2016-12-18] MEDS: FUROSEMIDE 10 MG/ML 4 ML VIAL IV SCH (17:01)
[2016-12-18] MEDS: prednisoLONE ACETATE 1% OPHTH DROPS 1 ML BTL RIGHT EYE SCH ×2 (18:23→21:43)
[2016-12-18] MEDS ORDERED: DORZOLAMIDE HCL 2% DROPS 10 ML BTL RIGHT EYE SCH (21:00)
[2016-12-18] MEDS ORDERED: FUROSEMIDE 10 MG/ML 2 ML VIAL IV SCH (21:00)
[2016-12-18 21:13] LABS: Glucose,Whole Blood 109 mg/dL (75-99)
[2016-12-18] MEDS: INSULIN LISPRO (humaLOG) 300 UNIT/3 ML VIAL SQ SCH (21:14)
[2016-12-18] MEDS: QUEtiapine 25 MG TAB PO SCH (21:41)
[2016-12-18] MEDS: TAMSULOSIN 0.4 MG CAP.ER.24H PO SCH (21:41)
[2016-12-18] MEDS: LATANOPROST 0.005% OPHTH DROPS 2.5 ML BTL RIGHT EYE SCH (21:42)
[2016-12-18] MEDS: DORZOLAMIDE HCL 2% DROPS 10 ML BTL RIGHT EYE SCH (21:42)
[2016-12-19] MEDS: FUROSEMIDE 10 MG/ML 4 ML VIAL IV SCH ×4 (00:23→22:56)
[2016-12-19] MEDS: guaiFENesin 600 MG TABLET.ER PO SCH ×3 (00:23→22:53)
[2016-12-19] MEDS: prednisoLONE ACETATE 1% OPHTH DROPS 1 ML BTL RIGHT EYE SCH ×12 (00:24→22:57)
[2016-12-19] MEDS: methylPREDNISolone SOD SUCCI 40 MG/ML 1 ML VIAL IV SCH ×5 (00:24→22:56)
[2016-12-19] MEDS: IPRATROPIUM-ALBUTEROL 3 ML NEB INHALATION SCH ×5 (03:48→19:41)
[2016-12-19 06:15] LABS: Glucose,Whole Blood 121 mg/dL (75-99)
[2016-12-19] MEDS: INSULIN LISPRO (humaLOG) 300 UNIT/3 ML VIAL SQ SCH ×4 (06:53→22:54)
[2016-12-19] MEDS: BUDESONIDE 0.5 MG/2 ML NEBU INHALATION SCH ×2 (09:03→19:41)
[2016-12-19] MEDS: POLYETHYLENE GLYCOL 3350 17 GM POWD.PACK PO SCH (09:34)
[2016-12-19] MEDS: LISINOPRIL 2.5 MG TAB PO SCH (09:35)
[2016-12-19] MEDS: METOPROLOL TARTRATE 12.5 MG TAB PO SCH ×2 (09:36→22:55)
[2016-12-19] MEDS: ASPIRIN 81 MG CHEW PO SCH (09:36)
[2016-12-19] MEDS: SPIRONOLACTONE 25 MG TAB PO SCH (09:36)
[2016-12-19] MEDS: FINASTERIDE 5 MG TAB PO SCH (09:39)
[2016-12-19] MEDS: DORZOLAMIDE HCL 2% DROPS 10 ML BTL RIGHT EYE SCH ×2 (09:40→17:28)
[2016-12-19 12:00] LABS: Glucose,Whole Blood 134 mg/dL (75-99)
[2016-12-19] MEDS ORDERED: NON-FORMULARY DRUG (Lactose-Reduced Food [Ensure Plus] 1 CAN) PO SCH (14:00)
--- NOTE | 2016-12-19 15:28 | PN ---
This patient is doing fairly well. The patient's shortness of breath is improved. This patient is mostly admitted with acute exacerbation of COPD mild heart failure. He is tolerating his medications well. Blood pressure is 110/59 mmHg. Heart rate is 85 per minute. First and second heart sounds are normal. Lungs reveal a few scattered wheezes. We will continue the current medications and check the BMP tomorrow.
[2016-12-19] MEDS: SENNOSIDES-DOCUSATE SODIUM 1 EACH TAB PO SCH (15:49)
[2016-12-19 16:57] LABS: Glucose,Whole Blood 156 mg/dL (75-99)
[2016-12-19] MEDS ORDERED: IPRATROPIUM-ALBUTEROL 3 ML NEB INHALATION PRN (20:16)
[2016-12-19 21:08] LABS: Glucose,Whole Blood 183 mg/dL (75-99)
[2016-12-19] MEDS: QUEtiapine 25 MG TAB PO SCH (22:55)
[2016-12-19] MEDS: LATANOPROST 0.005% OPHTH DROPS 2.5 ML BTL RIGHT EYE SCH (22:55)
[2016-12-19] MEDS: TAMSULOSIN 0.4 MG CAP.ER.24H PO SCH (22:56)
[2016-12-20 01:30] VITALS: RESP 18
[2016-12-20] MEDS: prednisoLONE ACETATE 1% OPHTH DROPS 1 ML BTL RIGHT EYE SCH ×8 (03:52→18:43)
[2016-12-20 06:23] LABS: Glucose,Whole Blood 136 mg/dL (75-99)
[2016-12-20] MEDS: INSULIN LISPRO (humaLOG) 300 UNIT/3 ML VIAL SQ SCH ×4 (07:01→21:36)
[2016-12-20] MEDS: methylPREDNISolone SOD SUCCI 40 MG/ML 1 ML VIAL IV SCH ×4 (07:02→23:31)
--- NOTE | 2016-12-20 07:03 | XR ---
EXAMINATION TYPE: XR chest 2V DATE OF EXAM: 12/20/2016 6:55 AM HISTORY: chf. REFERENCE: Previous study dated 12/18/2016. FINDINGS: The study is rotated. The patient's chin projects over the chest. The heart is enlarged. There is some atelectasis in the right middle lobe. Pleural spaces appear alok r. IMPRESSION: 1. CARDIOMEGALY. 2. RIGHT MIDDLE LOBE ATELECTASIS.
[2016-12-20 07:17] LABS: Anion Gap 12 mmol/L; Blood Urea Nitrogen 46 mg/dL (9-20); Calcium 9.3 mg/dL (8.4-10.2); Carbon Dioxide 26 mmol/L (22-30); Chloride 100 mmol/L (98-107); Glucose 123 mg/dL (74-99); Non-African American GFR(MDRD) >60 (>60 ml/min/1.73 sqM); Potassium 3.8 mmol/L (3.5-5.1); Sodium 138 mmol/L (137-145)
[2016-12-20] MEDS: FUROSEMIDE 10 MG/ML 4 ML VIAL IV SCH ×3 (08:25→23:31)
[2016-12-20] MEDS: POLYETHYLENE GLYCOL 3350 17 GM POWD.PACK PO SCH (08:25)
[2016-12-20] MEDS: DORZOLAMIDE HCL 2% DROPS 10 ML BTL RIGHT EYE SCH ×2 (08:25→21:35)
[2016-12-20] MEDS: guaiFENesin 600 MG TABLET.ER PO SCH ×2 (08:25→21:34)
[2016-12-20] MEDS: ASPIRIN 81 MG CHEW PO SCH (08:25)
[2016-12-20] MEDS: SPIRONOLACTONE 25 MG TAB PO SCH (08:26)
[2016-12-20] MEDS: FINASTERIDE 5 MG TAB PO SCH (08:26)
[2016-12-20] MEDS: METOPROLOL TARTRATE 12.5 MG TAB PO SCH ×2 (08:26→21:35)
[2016-12-20] MEDS: LISINOPRIL 2.5 MG TAB PO SCH (08:26)
[2016-12-20] MEDS: SENNOSIDES-DOCUSATE SODIUM 1 EACH TAB PO SCH (08:33)
--- NOTE | 2016-12-20 08:53 | PN ---
DATE OF SERVICE: 12/19/2016 PRESENTING COMPLAINT: Tired. INTERVAL HISTORY: This is a patient admitted with CHF exacerbation, a bit more perky today. Has got his baseball cap on. Patient's daughter and son-in-law at the bedside. Patient ate small amounts. Pretty much in bed. The legs are little bit more perky. Review of systems done for constitutional, cardiovascular, GI, pulmonary; relevant findings as above. Patient has got a slight cough. Current medications are reviewed that include IV Lasix, IV steroids. On examination, afebrile, pulse 92, respirations 18, blood pressure 110/59, pulse ox 96% on 2 L. GENERAL APPEARANCE: Sitting up, tired-appearing but a bit more awake. EYES: Pupils equal. Conjunctivae dirty-appearing. NECK: JVD unable to assess. Mass not palpable. Respiratory effort increased. LUNGS: Decreased breath sounds. CARDIOVASCULAR: First and second sounds normal. No edema. ABDOMEN: Soft, nontender. Liver and spleen not palpable. PSYCHIATRY: Patient answering simple questions. DERMATOLOGICAL: Diffuse bruising, dry skin. INVESTIGATIONS: Accu-Cheks are noted. ASSESSMENT: 1. Acute on chronic congestive heart failure exacerbation from systolic dysfunction; ejection fraction 30% to 35%, underlying hypertensive heart disease, slow to respond. 2. Alzheimer's dementia. No behavioral disturbance. 3. Medical debility. 4. Acute metabolic encephalopathy, multifactorial present on admission with some improvement. 5. Chronic obstructive pulmonary disease in an ex-smoker. 6. Essential hypertension. 7. Chronic benign prostatic hypertrophy with urinary outflow obstruction with a chronic Mina catheter. 8. Chronic Velazquez's cyst. 9. Chronic medical debility. 10. Primary osteoarthritis of multiple joints, bilateral. 11. CODE STATUS: DO NOT RESUSCITATE. PLAN: Continue current medication and treatment plan. Repeat a chest x-ray in the morning. Repeat labs in the morning. Prognosis remains guarded. Advanced care planning was discussed at length with the patient's [id number] and son-in-law. Overall prognosis is guarded. Will see how the patient goes and if patient deteriorates and agreeable to patient great towards hospice. I understand the overall prognosis is poor. Patient is already CODE STATUS: DNR. How the patient fares will be determined in the next 24 to 48 hours. ADVANCED CARE PLANNING: Additional time spent was about 20 to 25 minutes in addition to the progress note.
[2016-12-20] MEDS: IPRATROPIUM-ALBUTEROL 3 ML NEB INHALATION SCH ×4 (08:55→20:50)
[2016-12-20] MEDS: BUDESONIDE 0.5 MG/2 ML NEBU INHALATION SCH ×2 (08:55→20:50)
[2016-12-20 11:46] LABS: Glucose,Whole Blood 149 mg/dL (75-99)
--- NOTE | 2016-12-20 11:46 | P.PN ---
Subjective Principal diagnosis: Shortness of breath This is a pleasant 89-year-old gentleman who follows with Dr. Archer in the office. Was recently discharged from the hospital on the of this month. He presented to the emergency department from an extended care facility after complaining of progressively worsening shortness of breath. 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 EKG on admission showed sinus rhythm with a first-degree AV block and right bundle branch block with bigeminal PVCs as well as a triplet. Chest x-ray on admission showed stable cardiomegaly as well as some mild left basilar atelectasis. D-dimer was elevated therefore CT of the chest was done that was negative for PE. Patient is currently being treated for exacerbation of COPD as well as mild congestive cardiac failure systolic in nature acute on chronic. Most recent echocardiogram with Doppler study was performed earlier this month which revealed an ejection fraction of 30-35%. Patient has diuresed well through the night, weight is down considerably today. Repeat chest x-ray reveals atelectasis. Continues to have mild wheezing. Creatinine 1.0. Objective - Vital Signs Vital signs: Vital Signs Temp 96.4 F L 12/20/16 08:00 Pulse 94 12/20/16 09:12 Resp 18 12/20/16 04:00 BP 117/65 12/20/16 08:00 Pulse Ox 97 12/20/16 08:00 Intake & Output 12/19/16 12/20/16 12/20/16 18:59 06:59 18:59 Intake Total 480 250 300 Output Total 800 800 Balance -320 250 -500 Weight 87.7 kg Intake: Oral 480 250 300 Output: Urine 800 800 Other: Voiding Method Indwelling Catheter Indwelling Catheter Indwelling Catheter - Exam PHYSICAL EXAMINATION: HEENT: Head is atraumatic, normocephalic. Pupils equal, round. Neck is supple. There is no elevated jugular venous pressure. HEART EXAMINATION: Heart S1 and S2 systolic murmur is heard. CHEST EXAMINATION: Lungs reveal scattered wheezes throughout. ABDOMEN: Soft, nontender. Bowel sounds are heard. No organomegaly noted. EXTREMITIES: 1+ peripheral pulses with no evidence of peripheral edema and no calf tenderness noted. Patient does have significant skin discoloration on arms and legs, positive Velazquez cyst. NEUROLOGIC patient is awake, alert and oriented -3. . - Labs CBC & Chem 7: 12/18/16 02:00 12/20/16 06:31 Labs: Abnormal Lab Results - Last 24 Hours (Table) 12/19/16 12/19/16 12/19/16 Range/Units 11:51 16:48 21:06 BUN (9-20) mg/dL Glucose (74-99) mg/dL POC Glucose (mg/dL) 134 H 156 H 183 H (75-99) mg/dL 12/20/16 12/20/16 Range/Units 06:22 06:31 BUN 46 H (9-20) mg/dL Glucose 123 H (74-99) mg/dL POC Glucose (mg/dL) 136 H (75-99) mg/dL Assessment and Plan Plan: Assessment and Plan Plan: Assessment and plan #1 progressively worsening shortness of breath, likely mostly related to acute exacerbation of COPD with mild acute on chronic systolic congestive heart failure, BNP 2190 #2 hypertension, episodes of hypotension prior to previous admission #3 BPH #4 frequent PVCs and runs of nonsustained VT # 5 chronic bronchitis. Plan Cardiology's perspective, we will continue current dose of IV Lasix for 24 hours. Check lytes BUN and creatinine in the morning. DNP note has been reviewed, I agree with a documented findings and plan of care. Patient was seen and examined.
[2016-12-20 14:25] VITALS: BMI 27.7
[2016-12-20 16:35] LABS: Glucose,Whole Blood 171 mg/dL (75-99)
[2016-12-20 20:50] LABS: Glucose,Whole Blood 240 mg/dL (75-99)
[2016-12-20] MEDS: LATANOPROST 0.005% OPHTH DROPS 2.5 ML BTL RIGHT EYE SCH (21:35)
[2016-12-20] MEDS: QUEtiapine 25 MG TAB PO SCH (21:35)
[2016-12-20] MEDS: TAMSULOSIN 0.4 MG CAP.ER.24H PO SCH (21:35)
--- NOTE | 2016-12-20 22:17 | PN ---
DATE OF SERVICE: 12/20/2016 PRESENTING COMPLAINT: Tired. INTERVAL HISTORY: Patient presented with CHF exacerbation. A bit more perky. Eating about 25% of his meals. Patient's 2 nieces are at the bedside. Pretty much he has been in bed. Awake. Answering questions but still pretty tired. Review of systems done for constitutional, cardiovascular, GI, pulmonary; relevant findings as above. Current medications are reviewed that include IV Lasix. On examination, temperature 96.4, pulse 92, respiration 18, blood pressure 107/65, pulse ox 97% on 2 L. GENERAL APPEARANCE: Sitting up, tired-appearing. More awake. EYES: Pupils equal. Conjunctivae dirty. NECK: JVD unable to assess. Mass not palpable. RESPIRATORY: Effort increased. LUNGS: Improved air entry. CARDIOVASCULAR: First and second sounds normal. No edema. ABDOMEN: Soft, non-tender. Liver and spleen not palpable. PSYCHIATRY: Awake. Answering simple questions. Mood and affect slightly low. DERMATOLOGICAL: Diffuse bruising and dry skin. INVESTIGATIONS: Potassium 3.8. BUN 46, creatinine 1.0. Chest x-ray shows cardiomegaly, right middle lobe atelectasis. Lungs have improved from before. ASSESSMENT: 1. Acute on chronic congestive heart failure exacerbation from systolic dysfunction; ejection fraction 30% to 35%, with underlying hypertensive heart disease, improving. 2. Alzheimer's dementia, late-onset type. 3. Medical debility. 4. Acute metabolic encephalopathy, multi-factorial, present on admission, with some improvement. 5. Chronic obstructive pulmonary disease in an ex-smoker. 6. Essential hypertension. 7. Chronic benign prostatic hypertrophy causing urinary outflow obstruction with a chronic Mina catheter. 8. Chronic Velazquez's cyst. 9. Chronic medical debility. 10. Primary osteoarthritis of multiple joints, bilateral. 11. CODE STATUS: DO NOT RESUSCITATE. PLAN: Care was discussed with the 2 nieces at the bedside. Also the daughter and son-in-law came back. Did talk to them. Patient is relatively stable, but overall prognosis is not good, given multiple problems and ( ) prognosis.
[2016-12-21] MEDS: methylPREDNISolone SOD SUCCI 40 MG/ML 1 ML VIAL IV SCH ×2 (05:59→11:57)
[2016-12-21 06:09] LABS: Glucose,Whole Blood 133 mg/dL (75-99)
[2016-12-21] MEDS: INSULIN LISPRO (humaLOG) 300 UNIT/3 ML VIAL SQ SCH ×2 (06:10→11:57)
[2016-12-21 07:25] LABS: Anion Gap 10 mmol/L; Blood Urea Nitrogen 50 mg/dL (9-20); Calcium 9.3 mg/dL (8.4-10.2); Carbon Dioxide 28 mmol/L (22-30); Chloride 102 mmol/L (98-107); Glucose 130 mg/dL (74-99); Non-African American GFR(MDRD) >60 (>60 ml/min/1.73 sqM); Potassium 3.6 mmol/L (3.5-5.1); Sodium 140 mmol/L (137-145)
[2016-12-21] MEDS: BUDESONIDE 0.5 MG/2 ML NEBU INHALATION SCH (08:47)
[2016-12-21] MEDS: IPRATROPIUM-ALBUTEROL 3 ML NEB INHALATION SCH ×2 (08:47→12:01)
[2016-12-21] MEDS ORDERED: prednisoLONE ACETATE 1% OPHTH DROPS 1 ML BTL LEFT EYE SCH (09:00)
[2016-12-21] MEDS: ASPIRIN 81 MG CHEW PO SCH (09:05)
[2016-12-21] MEDS: POLYETHYLENE GLYCOL 3350 17 GM POWD.PACK PO SCH (09:05)
[2016-12-21] MEDS: guaiFENesin 600 MG TABLET.ER PO SCH (09:05)
[2016-12-21] MEDS: FUROSEMIDE 10 MG/ML 4 ML VIAL IV SCH (09:06)
[2016-12-21] MEDS: FINASTERIDE 5 MG TAB PO SCH (09:07)
[2016-12-21] MEDS: LISINOPRIL 2.5 MG TAB PO SCH (09:08)
[2016-12-21] MEDS: METOPROLOL TARTRATE 12.5 MG TAB PO SCH (09:08)
[2016-12-21] MEDS: DORZOLAMIDE HCL 2% DROPS 10 ML BTL RIGHT EYE SCH (09:09)
[2016-12-21] MEDS: SPIRONOLACTONE 25 MG TAB PO SCH (09:09)
[2016-12-21 11:28] LABS: Glucose,Whole Blood 157 mg/dL (75-99)
--- NOTE | 2016-12-21 11:32 | DS ---
DATE OF ADMISSION: 12/18/2016 DATE OF DISCHARGE: FINAL DIAGNOSES: 1. Acute on chronic congestive heart failure exacerbation from systolic dysfunction; ejection fraction 30% to 35%, from underlying hypertensive heart disease. 2. Alzheimer's dementia, late onset type. 3. Medical debility. 4. Acute metabolic encephalopathy, multifactorial present on admission with some improvement. 5. Chronic obstructive pulmonary disease in an ex-smoker. 6. Essential hypertension. 7. Chronic benign prostatic hypertrophy causing urine outflow obstruction with chronic Mina catheter. 8. Chronic Velazquez's cyst. 9. Chronic medical debility. 10. Primary osteoarthritis of multiple joints, bilateral. 11. CODE STATUS: DNR. HOSPITAL COURSE: This patient presented with CHF exacerbation, responded well to IV diuretics. At the time discharge the patient is tolerating his diet. Able to carry out simple conversation though weak and tired, sitting up in a chair. Spoke to the son in law today. Overall prognosis is guarded. Considering everything, the patient is doing reasonably okay. The patient has multiple comorbidities. CONSULTATION: Dr. Dionisio Francis from cardiology. Discharge planning more than 35 minutes. DISCHARGE MEDICATIONS: 1. Proscar 5 mg p.o. daily. 2. Rapaflo 8 mg p.o. q.h.s. 3. Travatan-Z 0.04% one drop to right eye at bedtime. 4. Trusopt 2% one drop to right eye daily. 5. Durezol one drop to right eye daily. 6. Senokot-S 1 tablet p.o. daily. 7. Aspirin 81 mg p.o. daily. 8. Seroquel 25 mg q.h.s. 9. Tylenol 650 mg q.4 p.r.n. 10. Dulcolax 10 mg rectal daily p.r.n. 11. Pulmicort 0.5 mg inhalation b.i.d. 12. DuoNeb t.i.d. 13. Ensure Plus one can p.o. daily. 14. Milk of magnesia 25 mg p.o. daily p.r.n. 15. Adult Fleet 133 mL rectal daily p.r.n. 16. MiraLax 17 gm p.o. daily. 17. Mucinex 600 mg p.o. b.i.d. 18. Lasix 60 mg p.o. daily. 19. [place] 5, 1 tablet p.o. q.6 p.r.n. 20. Duoneb q2 p.r.n. 21. Levaquin 500 mg p.o. daily. 22. Zestril 2.5 mg p.o. daily. 23. Lopressor 12.5 p.o. b.i.d. 24. Aldactone 25 mg p.o. daily. 25. Prednisone taper. DISPOSITION: [facility]. Follow up with Dr. Bolton at [facility]. LABS: BMP in 3 days. CODE STATUS: DNR. DC planning more than 35 minutes.
[2016-12-21] MEDS: SENNOSIDES-DOCUSATE SODIUM 1 EACH TAB PO SCH (11:57)
--- NOTE | 2016-12-21 12:39 | P.PN ---
Subjective Principal diagnosis: Shortness of breath This is a pleasant 89-year-old gentleman who follows with Dr. Archer in the office. Was recently discharged from the hospital on the of this month. He presented to the emergency department from an extended care facility after complaining of progressively worsening shortness of breath. 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 EKG on admission showed sinus rhythm with a first-degree AV block and right bundle branch block with bigeminal PVCs as well as a triplet. Chest x-ray on admission showed stable cardiomegaly as well as some mild left basilar atelectasis. D-dimer was elevated therefore CT of the chest was done that was negative for PE. Patient is currently being treated for exacerbation of COPD as well as mild congestive cardiac failure systolic in nature acute on chronic. Most recent echocardiogram with Doppler study was performed earlier this month which revealed an ejection fraction of 30-35%. Patient has diuresed well through the night, weight is about the same. BUN 50, creatinine 0.9, potassium 3.6. Objective - Vital Signs Vital signs: Vital Signs Temp 97.7 F 12/21/16 08:00 Pulse 64 12/21/16 12:16 Resp 18 12/21/16 08:00 BP 127/65 12/21/16 08:00 Pulse Ox 98 12/21/16 08:47 Intake & Output 12/20/16 12/21/16 12/21/16 18:59 06:59 18:59 Intake Total 340 150 237 Output Total 1200 Balance -860 150 237 Weight 87.7 kg 87 kg Intake: Oral 340 150 237 Output: Urine 1200 Other: Voiding Method Indwelling Catheter Indwelling Catheter Indwelling Catheter - Exam PHYSICAL EXAMINATION: HEENT: Head is atraumatic, normocephalic. Pupils equal, round. Neck is supple. There is no elevated jugular venous pressure. HEART EXAMINATION: Heart S1 and S2 systolic murmur is heard. CHEST EXAMINATION: Lungs reveal scattered wheezes throughout. ABDOMEN: Soft, nontender. Bowel sounds are heard. No organomegaly noted. EXTREMITIES: 1+ peripheral pulses with no evidence of peripheral edema and no calf tenderness noted. Patient does have significant skin discoloration on arms and legs, positive Velazquez cyst. NEUROLOGIC patient is awake, alert and oriented -3. . - Labs CBC & Chem 7: 12/18/16 02:00 12/21/16 06:19 Labs: Abnormal Lab Results - Last 24 Hours (Table) 12/20/16 12/20/16 12/21/16 Range/Units 16:34 20:49 06:07 BUN (9-20) mg/dL Glucose (74-99) mg/dL POC Glucose (mg/dL) 171 H 240 H 133 H (75-99) mg/dL 12/21/16 12/21/16 Range/Units 06:19 11:16 BUN 50 H (9-20) mg/dL Glucose 130 H (74-99) mg/dL POC Glucose (mg/dL) 157 H (75-99) mg/dL Assessment and Plan Plan: Assessment and Plan Plan: Assessment and plan #1 progressively worsening shortness of breath, likely mostly related to acute exacerbation of COPD with mild acute on chronic systolic congestive heart failure, BNP 2190 #2 hypertension, episodes of hypotension prior to previous admission #3 BPH #4 frequent PVCs and runs of nonsustained VT # 5 chronic bronchitis. Plan Cardiology's perspective, we will continue current dose of IV Lasix for 24 hours. Check lytes BUN and creatinine in the morning. DNP note has been reviewed, I agree with a documented findings and plan of care. Patient was seen and examined.
[2016-12-21 12:50] VITALS: BP 115/56; PULSE 58; TEMP 96.9
== END 2016-12-21 13:41 | DRG 291 ==
LOC: SUPCPDRO 01:24 → EC 01:24 → 6SEL 05:26
PROVIDERS: ADMIT Hospitalist; ATTEND Hospitalist
DX: I11.0 Hypertensive heart disease with heart failure (principal); G93.41 Metabolic encephalopathy; I47.2 Ventricular tachycardia; J44.1 Chronic obstructive pulmonary disease with (acute) exacerbation; N13.8 Other obstructive and reflux uropathy; J98.11 Atelectasis; I50.23 Acute on chronic systolic (congestive) heart failure; Z66 Do not resuscitate; I43 Cardiomyopathy in diseases classified elsewhere; F02.80 Dementia in other diseases classified elsewhere, unspecified severity, without behavioral disturbance, psychotic disturbance, mood disturbance, and anxiety; I45.10 Unspecified right bundle-branch block; G30.1 Alzheimer's disease with late onset; N40.1 Benign prostatic hyperplasia with lower urinary tract symptoms; M19.91 Primary osteoarthritis, unspecified site; M71.20 Synovial cyst of popliteal space [Baker], unspecified knee; J45.909 Unspecified asthma, uncomplicated; I44.0 Atrioventricular block, first degree; H35.30 Unspecified macular degeneration; H40.9 Unspecified glaucoma; M10.9 Gout, unspecified; Z85.828 Personal history of other malignant neoplasm of skin; Z87.891 Personal history of nicotine dependence; Z86.14 Personal history of Methicillin resistant Staphylococcus aureus infection; Z98.42 Cataract extraction status, left eye; Z98.41 Cataract extraction status, right eye; Z79.82 Long term (current) use of aspirin; Z79.51 Long term (current) use of inhaled steroids; Z79.899 Other long term (current) drug therapy; F32.9 Major depressive disorder, single episode, unspecified; Z82.49 Family history of ischemic heart disease and other diseases of the circulatory system
CPT/HCPCS: 36415; 71010; 71020; 71275; 80048; 80053; 81001; 82550; 82553; 83605; 83735; 83880; 84484; 85025; 85379; 85610; 85730; 87040; 93005; 94640; 94760; 96365; 96375; 99285

== ENCOUNTER 2016-12-27 17:22 | Observation (INO) | payer MEDICARE, OTHER ==
[2016-12-27] MEDS ORDERED: SODIUM CHLORIDE 0.9% 1,000 ML IV STA (17:57)
[2016-12-27 18:14] LABS: Basophils % (A) 0 %; CH 32.6; CHCM 33.6; Eosinophils % (A) 0 %; HCT 40.7 % (39.0-53.0); HDW 2.64; HGB 13.6 gm/dL (13.0-17.5); Luc # (Auto) 0.17; Luc % (Auto) 1; Lymphocytes # (A) 1.4 k/uL (1.0-4.8); Lymphocytes % (A) 11 %; MCH 32.4 pg (25.0-35.0); MCHC 33.3 g/dL (31.0-37.0); MCV 97.3 fL (80.0-100.0); Mean Platelet Volume 7.5; Monocytes # (A) 0.6 k/uL (0-1.0); Monocytes % (A) 5 %; Neutrophils # (A) 10.9 k/uL (1.3-7.7); Neutrophils % (A) 83 %; RBC 4.19 m/uL (4.30-5.90); RDW 14.3 % (11.5-15.5); WBC 13.2 k/uL (3.8-10.6); WBC (Perox) 13.66
[2016-12-27 18:22] LABS: ALT 20 U/L (21-72); AST 14 U/L (17-59); Alkaline Phosphatase 80 U/L (38-126); Anion Gap 10 mmol/L; Blood Urea Nitrogen 38 mg/dL (9-20); Calcium 9.1 mg/dL (8.4-10.2); Carbon Dioxide 32 mmol/L (22-30); Chloride 96 mmol/L (98-107); Glucose 110 mg/dL (74-99); Magnesium 2.4 mg/dL (1.6-2.3); Non-African American GFR(MDRD) >60 (>60 ml/min/1.73 sqM); Potassium 4.2 mmol/L (3.5-5.1); Sodium 138 mmol/L (137-145); Total Bilirubin 1.9 mg/dL (0.2-1.3)
[2016-12-27 18:25] LABS: INR 1.1 (<1.1); Partial Thromboplastin Time 23.3 sec (22.0-30.0); Prothrombin Time 11.2 sec (9.0-12.0)
--- NOTE | 2016-12-27 18:31 | XR ---
EXAMINATION TYPE: XR chest 2V DATE OF EXAM: 12/27/2016 6:16 PM COMPARISON: 12/20/2016 HISTORY: Dysrhythmia TECHNIQUE: Frontal and lateral views of the chest are obtained. FINDINGS: There is mild linear density at the left lung base. The other lung jessica are clear. There is no heart failure. Thoracic aorta is atheromatous. There is no definite pleural effusion. There is some lucency seen posteriorly on the lateral view that could relate to hiatal hernia or unusual diap hragmatic hernia. IMPRESSION: Mild atelectasis at the left lung base. There is evidence of a hiatal hernia or diaphrag matic hernia on the lateral view. Atelectasis is new compared to last exam.
[2016-12-27 18:32] LABS: Creatine Kinase 25 U/L (55-170)
[2016-12-27 18:45] LABS: Creatine Kinase MB 0.5 ng/mL (0.0-2.4); Troponin I <0.012 ng/mL (0.000-0.034)
--- NOTE | 2016-12-27 20:36 | ED ---
Recheck HPI - General Chief Complaint: Recheck/Abnormal Lab/Rx Stated Complaint: bradycardia Time Seen by Provider: 12/27/16 17:38 Source: EMS Mode of arrival: EMS Limitations: no limitations - History of Present Illness Initial Comments: He was sent in from the [facility] they noticed that his heart rate was done in 36 the patient himself denied any lightheadedness he was awake alert he didn't deny he denies any headaches no chest pain or shortness of breath no abdominal pain no sinus symptoms of TIA or CVA he does have a tendency of bradycardia but his heart rate stays around 55 and in the ER his heart rate was now low at all his blood pressure was adequate medical history of system is unremarkable otherwise - Related Data Home Medications Medication Instructions Recorded Confirmed Finasteride [Proscar] 5 mg PO DAILY@0800 10/06/14 12/27/16 Silodosin [Rapaflo] 8 mg PO HS@2100 10/06/14 12/27/16 Travoprost [Travatan Z 0.004%] 1 drop RIGHT EYE HS@2100 10/06/14 12/27/16 Dorzolamide 2% [Trusopt 2%] 1 drops RIGHT EYE DAILY@0800 09/14/16 12/27/16 Difluprednate [Durezol] 1 drop LEFT EYE DAILY 12/02/16 12/27/16 Sennosides-Docusate Sodium 1 tab PO DAILY@0800 12/02/16 12/27/16 [Senokot-S] Acetaminophen Tab [Tylenol] 650 mg PO Q4H PRN 12/18/16 12/27/16 Bisacodyl [Dulcolax] 10 mg RECTAL DAILY PRN 12/18/16 12/27/16 Budesonide [Pulmicort] 0.5 mg INHALATION RT-BID 12/18/16 12/27/16 Ipratropium-Albuterol Nebulize 3 ml INHALATION RT-QID 12/18/16 12/27/16 [Duoneb 0.5 mg-3 mg/3 ml Soln] Lactose-Reduced Food [Ensure Plus] 1 can PO DAILY@1400 12/18/16 12/27/16 Magnesium Hydroxide [Milk of 2,400 mg PO DAILY PRN 12/18/16 12/27/16 Magnesia] Na Phos,M-B/Na Phos,Di-Ba [Fleet 133 ml RECTAL ONCE PRN 12/18/16 12/27/16 Adult] Polyethylene Glycol 3350 [Miralax] 17 gm PO DAILY@0800 12/18/16 12/27/16 Aspirin 81 mg PO DAILY@1700 12/27/16 12/27/16 predniSONE See Taper PO DAILY 12/27/16 12/27/16 Previous Rx's Medication Instructions Recorded Furosemide [Lasix] 60 mg PO DAILY #1 tab 12/21/16 HYDROcodone/APAP 5-325MG [[place] 1 tab PO Q6H PRN #10 tab 12/21/16 5-325] Ipratropium-Albuterol Nebulize 3 ml INHALATION RT-Q2H PRN #0 12/21/16 [Duoneb 0.5 mg-3 mg/3 ml Soln] ampul.neb Lisinopril [Zestril] 2.5 mg PO DAILY tab 12/21/16 Metoprolol Tartrate [Lopressor] 12.5 mg PO BID tab 12/21/16 Spironolactone [Aldactone] 25 mg PO DAILY tab 12/21/16 Allergies Allergy/AdvReac Type Severity Reaction Status Date / Time No Known Allergies Allergy Verified 12/27/16 18:20 Review of Systems ROS Statement: Those systems with pertinent positive or pertinent negative responses have been documented in the HPI. ROS Other: All systems not noted in ROS Statement are negative. Past Medical History Past Medical History: Asthma, Cancer, COPD, Eye Disorder, Hypertension, Pneumonia, Prostate Disorder Additional Past Medical History / Comment(s): Macular degeneration/ glaucoma R eye, tracheobronchitis, BPH, indwelling catheter, skin cancer with removal, sinus problems, gout History of Any Multi-Drug Resistant Organisms: MRSA Date of last positivie culture/infection: 10/16/2009 MDRO Source:: Left forearm Past Surgical History: No Surgical Hx Reported, Hernia Repair, Prostate Surgery Additional Past Surgical History / Comment(s): ruptured testicle at age of 11, bilateral cataract removal, nasal polyps removed, TURP, inguinal hernia repair, L forearm bx. Past Anesthesia/Blood Transfusion Reactions: No Reported Reaction Past Psychological History: Depression Additional Psychological History / Comment(s): Pt states he sometimes has "alittle depression." Denies any thoughts of suicide, states when the time comes, he is ready to . Pt ambulates occasionally with the assist of a cane or walker. He has 4 steps to get into the home and then he stays on the 1st floor. He sleeps in his recliner. His matt and son-in-law live 1 mile away and are active in his care. They take him to his appts. They make sure he has meals. He has VNA. Smoking Status: Former smoker Past Alcohol Use History: Daily Additional Past Alcohol Use History / Comment(s): Pt states he started smoking in 1943 and quit in 1974. He states he used to drink heavily but now drinks 2- 3 beers a day. Past Drug Use History: None Reported - Past Family History Father Family Medical History: Myocardial Infarction ([place]) Additional Family Medical History / Comment(s): pt. states his father in his 50's from a heart attack General Exam - General Exam Comments Initial Comments: General: The patient is awake and alert, in no distress, and does not appear acutely ill. GCS is 15 Skin: Skin is warm and dry and no rashes or lesions are noted. Eye: Pupils are equal, round and reactive to light, extra-ocular movements are intact; there is normal conjunctiva bilaterally. Ears, nose, mouth and throat: There are moist mucous membranes and no oral lesions. Neck: The neck is supple, there is no tenderness Cardiovascular: There is a regular rate and rhythm. No murmur, rub or gallop is appreciated. Respiratory: To auscultation bilateral, no wheezing no rhonchi no distress respiratory pope noticed Gastrointestinal: Soft, non-distended, non-tender abdomen without masses or organomegaly noted. There is no rebound or guarding present. Bowel sounds are unremarkable. Back: There is no tenderness to palpation in the midline. There is no obvious deformity. Musculoskeletal: Normal ROM, no tenderness, There is no pedal edema. There is no calf tenderness or swelling. No cords were appreciated. Neurological: CN II-XII intact, Cranial nerves III through XII are intact. There are no obvious motor or sensory deficits. Coordination appears grossly intact. Speech is normal. Psychiatric: Cooperative, appropriate mood & affect, normal judgment. 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 and left ventricular hypertrophy with repolarization abnormality this EKG was compared with the old EKG did not done back in December 18 this year Medical Decision Making - Lab Data Result diagrams: 12/27/16 18:00 12/27/16 18:00 Lab Results 12/27/16 12/27/16 12/27/16 Range/Units 18:00 18:00 18:00 WBC 13.2 H (3.8-10.6) k/uL RBC 4.19 L (4.30-5.90) m/uL Hgb 13.6 (13.0-17.5) gm/dL Hct 40.7 (39.0-53.0) % MCV 97.3 (80.0-100.0) fL MCH 32.4 (25.0-35.0) pg MCHC 33.3 (31.0-37.0) g/dL RDW 14.3 (11.5-15.5) % Plt Count 180 (150-450) k/uL Neutrophils % 83 % Lymphocytes % 11 % Monocytes % 5 % Eosinophils % 0 % Basophils % 0 % Neutrophils # 10.9 H (1.3-7.7) k/uL Lymphocytes # 1.4 (1.0-4.8) k/uL Monocytes # 0.6 (0-1.0) k/uL Eosinophils # 0.0 (0-0.7) k/uL Basophils # 0.0 (0-0.2) k/uL PT (9.0-12.0) sec INR (<1.1) APTT (22.0-30.0) sec Sodium 138 (137-145) mmol/L Potassium 4.2 (3.5-5.1) mmol/L Chloride 96 L (98-107) mmol/L Carbon Dioxide 32 H (22-30) mmol/L Anion Gap 10 mmol/L BUN 38 H (9-20) mg/dL Creatinine 0.90 (0.66-1.25) mg/dL Est GFR (MDRD) Af Amer >60 (>60 ml/min/1.73 sqM) Est GFR (MDRD) Non-Af >60 (>60 ml/min/1.73 sqM) Glucose 110 H (74-99) mg/dL Calcium 9.1 (8.4-10.2) mg/dL Magnesium 2.4 H (1.6-2.3) mg/dL Total Bilirubin 1.9 H (0.2-1.3) mg/dL AST 14 L (17-59) U/L ALT 20 L (21-72) U/L Alkaline Phosphatase 80 (38-126) U/L Total Creatine Kinase 25 L (55-170) U/L CK-MB (CK-2) 0.5 (0.0-2.4) ng/mL CK-MB (CK-2) Rel Index 2.0 Troponin I <0.012 (0.000-0.034) ng/mL Total Protein 6.0 L (6.3-8.2) g/dL Albumin 3.2 L (3.5-5.0) g/dL TSH 2.160 (0.465-4.680) mIU/L 12/27/16 Range/Units 18:00 WBC (3.8-10.6) k/uL RBC (4.30-5.90) m/uL Hgb (13.0-17.5) gm/dL Hct (39.0-53.0) % MCV (80.0-100.0) fL MCH (25.0-35.0) pg MCHC (31.0-37.0) g/dL RDW (11.5-15.5) % Plt Count (150-450) k/uL Neutrophils % % Lymphocytes % % Monocytes % % Eosinophils % % Basophils % % Neutrophils # (1.3-7.7) k/uL Lymphocytes # (1.0-4.8) k/uL Monocytes # (0-1.0) k/uL Eosinophils # (0-0.7) k/uL Basophils # (0-0.2) k/uL PT 11.2 (9.0-12.0) sec INR 1.1 (<1.1) APTT 23.3 (22.0-30.0) sec Sodium (137-145) mmol/L Potassium (3.5-5.1) mmol/L Chloride (98-107) mmol/L Carbon Dioxide (22-30) mmol/L Anion Gap mmol/L BUN (9-20) mg/dL Creatinine (0.66-1.25) mg/dL Est GFR (MDRD) Af Amer (>60 ml/min/1.73 sqM) Est GFR (MDRD) Non-Af (>60 ml/min/1.73 sqM) Glucose (74-99) mg/dL Calcium (8.4-10.2) mg/dL Magnesium (1.6-2.3) mg/dL Total Bilirubin (0.2-1.3) mg/dL AST (17-59) U/L ALT (21-72) U/L Alkaline Phosphatase (38-126) U/L Total Creatine Kinase (55-170) U/L CK-MB (CK-2) (0.0-2.4) ng/mL CK-MB (CK-2) Rel Index Troponin I (0.000-0.034) ng/mL Total Protein (6.3-8.2) g/dL Albumin (3.5-5.0) g/dL TSH (0.465-4.680) mIU/L Critical Care Time Total Critical Care Time: 30 Critical Care Time: Considering his multiple risk multiple risk factors and information from his jail that he was bradycardic he was to be closed so did his family his heart rate never went below 65 during his stay in the hospital I reviewed his labs those labs were discussed with the family white count is 13.2 there is a bit of left shift there he does have a history of COPD troponin is elevated compressive metabolic panel is negative chest x-rays negative considering a couple of episodes of bradycardia in the jail him can admit him under Dr. Joe ramirez and will consult cardiology Disposition Clinical Impression: Bradycardia, COPD (chronic obstructive pulmonary disease), Bronchitis Disposition: ADMITTED IP TO THIS HOSP Condition: Fair
[2016-12-27] MEDS ORDERED: NITROGLYCERIN SL TABS 0.4 MG TAB SUBLINGUAL PRN (20:51)
[2016-12-27] MEDS ORDERED: MORPHINE SULFATE 2 MG/ML SYRINGE IVP PRN (20:51)
[2016-12-27] MEDS ORDERED: IPRATROPIUM-ALBUTEROL 3 ML NEB INHALATION PRN (20:55)
[2016-12-27] MEDS ORDERED: HYDROcodone/APAP 5-325MG 1 EACH TAB PO PRN (20:55)
[2016-12-27] MEDS ORDERED: MAGNESIUM HYDROXIDE 2,400 MG/10 ML CUP PO PRN (20:55)
[2016-12-27] MEDS ORDERED: BISACODYL 10 MG SUPP RECTAL PRN (20:55)
[2016-12-27] MEDS ORDERED: ACETAMINOPHEN TAB 325 MG TAB PO PRN (20:55)
[2016-12-27] MEDS ORDERED: NA PHOS,M-B/NA PHOS,DI-BA 133 ML ENEMA RECTAL PRN (20:55)
[2016-12-27] MEDS ORDERED: LEVOFLOXACIN 500 MG TAB PO STA (20:58)
[2016-12-27] MEDS ORDERED: LEVOFLOXACIN 500 MG TAB PO SCH (21:00)
[2016-12-27] MEDS ORDERED: LATANOPROST 0.005% OPHTH DROPS 2.5 ML BTL RIGHT EYE SCH (21:00)
[2016-12-27] MEDS ORDERED: TAMSULOSIN 0.4 MG CAP.ER.24H PO SCH (21:00)
[2016-12-27 23:50] VITALS: BMI 25.1
[2016-12-28 01:43] LABS: Creatine Kinase 21 U/L (55-170)
[2016-12-28 01:55] LABS: Creatine Kinase MB 0.6 ng/mL (0.0-2.4); Troponin I <0.012 ng/mL (0.000-0.034)
[2016-12-28] MEDS: IPRATROPIUM-ALBUTEROL 3 ML NEB INHALATION SCH ×4 (07:00→16:35)
[2016-12-28 07:34] LABS: Cholesterol 101 mg/dL (<200); HDL Cholesterol 50 mg/dL (40-60); Triglycerides 75 mg/dL (<150)
[2016-12-28 08:00] LABS: Creatine Kinase MB 0.7 ng/mL (0.0-2.4); Troponin I 0.014 ng/mL (0.000-0.034)
[2016-12-28] MEDS ORDERED: BUDESONIDE 0.5 MG/2 ML NEBU INHALATION SCH (08:00)
[2016-12-28] MEDS ORDERED: FINASTERIDE 5 MG TAB PO SCH (08:00)
[2016-12-28] MEDS ORDERED: DORZOLAMIDE HCL 2% DROPS 10 ML BTL RIGHT EYE SCH (08:00)
[2016-12-28] MEDS ORDERED: SENNOSIDES-DOCUSATE SODIUM 1 EACH TAB PO SCH (08:00)
[2016-12-28] MEDS ORDERED: POLYETHYLENE GLYCOL 3350 17 GM POWD.PACK PO SCH (08:00)
[2016-12-28] MEDS ORDERED: SPIRONOLACTONE 25 MG TAB PO SCH (09:00)
[2016-12-28] MEDS ORDERED: METOPROLOL TARTRATE 12.5 MG TAB PO SCH (09:00)
[2016-12-28] MEDS ORDERED: FUROSEMIDE 20 MG TAB PO SCH (09:00)
[2016-12-28] MEDS ORDERED: NON-FORMULARY DRUG (Difluprednate [Durezol] 1 DROP) LEFT EYE SCH (09:00)
[2016-12-28] MEDS ORDERED: predniSONE 10 MG TAB PO SCH (09:00)
[2016-12-28] MEDS ORDERED: LISINOPRIL 2.5 MG TAB PO SCH (09:00)
[2016-12-28] MEDS ORDERED: ASPIRIN 325 MG TAB PO SCH (09:00)
--- NOTE | 2016-12-28 11:46 | CONS ---
DATE OF CONSULTATION: Mr. Gallardo is an 89-year-old male who was recently discharged from the hospital. Was readmitted through the emergency room for [facility]. Patient has a known history of severe cardiomyopathy, ejection fraction of 30% to 35%, history of frequent ventricular ectopic activity who according to the notes was noted to have bradycardia and irregular heartbeat. Reviewing the old rhythm, patient had frequent ventricular ectopic activity, which is not new to him. Asking the patient, he did not feel any different than before. His breathing has been stable. He denied any chest pain. No dizziness. No palpitation. He has some discomfort in the legs. He is not active physically. He denies any clear PND. No orthopnea. His past history is remarkable for history of chronic obstructive lung disease, history of the cardiomyopathy, atrial arrhythmia, history of hypertension. His medications at home include: 1. Metoprolol tartrate 12.5 mg twice a day. 2. Lasix 60 mg daily. 3. Proscar. 4. Zestril 2.5 mg daily. 5. Aldactone 25 mg daily. 6. Ipratropium. 7. Magnesium. 8. Dulcolax. 9. Trusopt. 10. Travatan. 11. Rapaflo. REVIEW OF SYSTEMS: RESPIRATORY SYSTEM: He has history of chronic obstructive lung disease, history of chronic dyspnea. No recent cough. GI SYSTEM: No recent GI bleeding. No peptic ulcer disease. SYSTEM: No dysuria or hematuria. NERVOUS SYSTEM: No history of seizure. PHYSICAL EXAMINATION: An 89-year-old male, alert, oriented, in no apparent distress. Blood pressure 118/50 with a heart rate in the 70s. HEAD: Normocephalic. EYES: Sclerae nonicteric. NECK: Good upstroke. No bruit. Lungs with decreased air exchange. No wheezes. HEART: Regular rate and rhythm with extrasystole. S1, S2, and a systolic murmur heard at the base. No diastolic murmur. No rub. ABDOMEN: Soft, nontender, positive bowel sounds. No organomegaly. EXTREMITIES: No edema, chronic skin changes. Lab data revealed a BUN and creatinine 38 and 0.9. Troponin less than 0.012, cholesterol 101, LDL of 36. TSH 2.16. His total bilirubin is 1.9, magnesium of 2.4, hemoglobin is 13.6. Chest x-ray revealed mild atelectasis. EKG revealed sinus mechanism with frequent ventricular ectopic activity and evidence of right bundle branch block. IMPRESSION: 1. History of cardiomyopathy with no evidence of active congestive heart failure at this time. 2. Ventricular ectopic activity. 3. Possible bradycardia. I have suspicion when the peripheral pulse was checked, it sounded to be bradycardic, although it was relative to the non-perfumed premature ventricular contractions. 4. History of chronic obstructive pulmonary disease. 5. History of hypertension. RECOMMENDATION: I will reinitiate the beta will at a lower dose. Continue the rest of medical regimen. If he is stable, I would expect he should be able to be transferred back to [facility] and followed as an outpatient with Dr. Godoy. Thank you for this consult.
[2016-12-28 12:42] VITALS: RESP 16
[2016-12-28] MEDS ORDERED: NON-FORMULARY DRUG (Lactose-Reduced Food [Ensure Plus] 1 CAN) PO SCH (14:00)
[2016-12-28 16:10] VITALS: BP 113/78; PULSE 42; TEMP 98
--- NOTE | 2016-12-29 08:27 | HP ---
DATE OF ADMISSION: 12/27/2016 HISTORY AND PHYSICAL AND DISCHARGE SUMMARY: REASON FOR ADMISSION: Palpitation. HISTORY OF PRESENT ILLNESS: This is an 89-year-old gentleman who was recently admitted to [facility] from our hospital after being treated for an acute exacerbation of chronic obstructive pulmonary disease. Patient was thereafter discharged to [facility]. Patient does have a history of severe myocardial cardiomyopathy with EF ejection fraction around 30-35%. Patient was having some symptoms of palpitations. Rhythm strips were noted to show significant ectopy and bradycardia. Prior to this the patient was on metoprolol 12.5 mg p.o. b.i.d. Patient denies having any headaches, blurry vision, chest pain, nausea, palpitations, urinary urgency or frequency at the time of my evaluation. States that he is feeling significantly better since his admission. Past medical history includes: 1. Congestive heart failure with systolic dysfunction. 2. Chronic obstructive pulmonary disease. 3. Atrial dysrhythmia. 4. Hypertension. 5. Benign prostatic hypertrophy. 6. Constipation. Home medications include: 1. Metoprolol. 2. Lasix. 3. Proscar. 4. Zestril. 5. Aldactone. 6. ( ). 7. Magnesium. 8. Dulcolax. 9. Trusopt. 10. Travatan. 11. Rapaflo. REVIEW OF SYSTEMS: Fourteen-point review of systems was done; none pertinent other than was discussed above. Medications were appropriately reconciled. SOCIAL HISTORY: Currently living at [facility]. Remote history of smoking. PHYSICAL EXAMINATION: VITAL SIGNS: Temperature 98, heart rate is 42, respiratory rate 16, blood pressure is 113/78. Saturating 98% on room air. GENERAL: Appears alert, oriented x3. Does not appear to be in distress. HEAD: is atraumatic, normocephalic. Pupils are equal and react to light and accommodation. SKIN: Multiple ecchymosis noted. LUNGS: Good air movement. Clear to auscultation. No rhonchi or wheezing. No murmurs appreciated. Slightly irregular, heart rate is 45 to 55 range. ABDOMEN: Soft, nontender, no organomegaly. LOWER EXTREMITIES: No edema noted. NEUROLOGICAL: No focal motor or sensory deficits noted. Laboratory data include hemoglobin 13.6, hematocrit 40.7, platelets 180. White count 13.2, sodium 138, potassium 4.2, chloride 96, bicarb 32. BUN 38, creatinine 0.90. TSH is 2.60. ASSESSMENT AND PLAN: 1. Palpitations secondary to ventricular ectopy. 2. Compensated systolic heart failure. 3. Hypertension. 4. Chronic obstructive pulmonary disease, stable. 5. Dyslipidemia. 6. Atrial tachyarrhythmia. 7. Hypertension. 8. Benign prostatic hypertrophy. PLAN: Patient will be discharged back to [facility]. Patient restarted back on a lower dose of metoprolol, it will be 1/2 tablet b.i.d. as recommended by our concert singer. The patient does not appear to have any significant ectopy at this time. Electrolytes were within normal limits. Patient is to follow up with in his concert singer within one week, Dr. Godoy. Patient is discharged back to [facility] in a stable condition.
== END 2016-12-28 16:38 ==
LOC: EC 17:22 → 3OBS 20:51
PROVIDERS: ADMIT Hospitalist; ATTEND Hospitalist
DX: R00.1 Bradycardia, unspecified (principal); J44.9 Chronic obstructive pulmonary disease, unspecified; J45.909 Unspecified asthma, uncomplicated; I11.0 Hypertensive heart disease with heart failure; I50.22 Chronic systolic (congestive) heart failure; Z79.82 Long term (current) use of aspirin; Z79.52 Long term (current) use of systemic steroids; Z79.899 Other long term (current) drug therapy; H40.9 Unspecified glaucoma; H35.30 Unspecified macular degeneration; Z98.49 Cataract extraction status, unspecified eye; N40.0 Benign prostatic hyperplasia without lower urinary tract symptoms; M10.9 Gout, unspecified; Z87.891 Personal history of nicotine dependence; Z82.49 Family history of ischemic heart disease and other diseases of the circulatory system; I49.3 Ventricular premature depolarization; E78.5 Hyperlipidemia, unspecified
CPT/HCPCS: 96360 ×2; 96361 ×3; 99291 ×2; 36415; 94640; 94760; 93005; 80061; 80053; 82550 ×2; 82553 ×2; 83735; 84443; 84484 ×2; 85025; 85610; 85730; 71020; G0378 ×2; S0138; J7512